=== PATIENT | male | born 1935 | race Caucasian/White ===

== ENCOUNTER 2017-10-04 09:54 | Emergency (ER) | payer MEDICARE, BC ==
[2017-10-04] MEDS: diphenhydrAMINE INJ 50MG/ML VIAL (J1200) IM (11:23)
== END 2017-10-04 12:13 | disposition home or self-care (01) ==
LOC: M ED 09:54
DX: L50.9 Urticaria, unspecified (principal); I10 Essential (primary) hypertension; I25.10 Atherosclerotic heart disease of native coronary artery without angina pectoris; Z95.1 Presence of aortocoronary bypass graft; Z95.5 Presence of coronary angioplasty implant and graft; Z88.0 Allergy status to penicillin; Z91.018 Allergy to other foods; Z91.040 Latex allergy status
CPT/HCPCS: J1200

== ENCOUNTER → 2019-05-08 | Outpatient (REF) | payer MEDICARE, BC ==
[~2019-05-08] MED LIST: ASPI325T10 PO; AZIT250T PO; BENA25TA10 PO; Budesonide NEB; CALCTAB68 PO; CENTTAB PO; COUM1TAB18 PO; FISH1000 PO; GLUC500T PO; GLUC750C4 PO; GREE250C PO; HYDR1CRE TOP; LEVA12INH INH; LOSA100T36 PO; MAPA500T17 PO; NAME5TAB13 PO; Nyquil PO; PERC7.5T12 PO; PULM1SUS AD; RED600TA PO; SIMV20TA2 PO; VITA500C24 PO; cranberry PO
[2019-05-08 13:29] LABS: HEMOGLOBIN 15.4 g/dl (13.5-17.5); MEAN CORPUSCULAR HEMOGLOBIN 30.3 pg (27.0-33.0); MEAN CORPUSCULAR HGB CONC 33.5 g/dl (32.0-36.5); MEAN CORPUSCULAR VOLUME 90.6 fl (80.0-96.0); PLATELET COUNT, AUTOMATED 212 10^3/uL (150-450); RED BLOOD COUNT 5.08 10^6/uL (4.30-6.10); WHITE BLOOD COUNT 8.4 10^3/uL (4.0-10.0)
[2019-05-08 13:47] LABS: HEMOGLOBIN A1c 6.1 %
[2019-05-08 14:06] LABS: ALBUMIN 4.2 GM/DL (3.2-5.2); ALT/SGPT 22 U/L (12-78); BILIRUBIN,TOTAL 0.7 MG/DL (0.2-1.0); BLOOD UREA NITROGEN 16 MG/DL (7-18); CALCIUM LEVEL 9.3 MG/DL (8.8-10.2); CARBON DIOXIDE LEVEL 26 MEQ/L (21-32); CHLORIDE LEVEL 110 MEQ/L (98-107); CREATININE FOR GFR 1.03 MG/DL (0.70-1.30); GLOMERULAR FILTRATION RATE > 60.0 (>35); GLUCOSE, FASTING 110 MG/DL (70-100); POTASSIUM SERUM 4.5 MEQ/L (3.5-5.1); SODIUM LEVEL 143 MEQ/L (136-145); TOTAL PROTEIN 7.4 GM/DL (6.4-8.2)
[2019-05-09 11:47] LABS: MALB URINE SIEMENS 30.4 MG/L; MAU/CREAT RATIO 18.2 MCG/MG (0.0-30.0)
== END ==
LOC: SKLAB8 07:00
PROVIDERS: ATTEND Internal Medicine
DX: Z79.899 Other long term (current) drug therapy (principal)

== ENCOUNTER → 2019-05-21 | Outpatient (REF) | payer MEDICARE, BC ==
[2019-05-22 15:59] LABS: HEPATITIS B SURFACE ANTIGEN NEGATIVE (NEGATIVE); HIV SCREEN CENTAUR SOURCE NEGATIVE (NEGATIVE)
[2019-05-23 09:17] LABS: HEP C VIRUS AB INDEX SOURCE PT 0.1 INDEX (0.0-0.8)
== END ==
LOC: SKLAB8 07:00
PROVIDERS: ATTEND Internal Medicine
DX: Z79.899 Other long term (current) drug therapy (principal)

== ENCOUNTER 2019-06-18 22:01 | Emergency (ER) | payer MEDICARE, BC ==
[~2019-06-18] VITALS: Ht 175.3 cm; Wt 85.0 kg
[2019-06-18] MEDS ORDERED: NS 1,000 ML IV SCH (22:12)
[2019-06-18] MEDS ORDERED: LIDOCAINE 2% 5ML JELLY UROJET TOP ONE (22:15)
--- NOTE | 2019-06-18 22:59 | REPVR ---
PROCEDURE INFORMATION: Exam: CT Head Without Contrast Exam date and time: 06/18/2019 10:39 PM Age: 84 years old Clinical indication: Altered mental status/memory loss TECHNIQUE: Imaging protocol: Computed tomography of the head without contrast. Radiation optimization: All CT scans at this facility use at least one of these dose optimization techniques: automated exposure control; mA and/or kV adjustment per patient size (includes targeted exams where dose is matched to clinical indication); or iterative reconstruction. COMPARISON: No relevant prior studies available. FINDINGS: Brain: The payne-white differentiation is maintained. No hemorrhage. No edema. There are moderate periventricular and subcortical lucencies consistent with chronic microvascular ischemic changes. Ventricles: Normal. No ventriculomegaly. Bones/joints: Unremarkable. No acute fracture. Sinuses: Complete opacification of the left maxillary sinus. Mastoid air cells: Visualized mastoid air cells are well aerated. Soft tissues: Unremarkable. Vasculature: Vascular calcifications. IMPRESSION: No acute intracranial abnormality. Chronic microvascular ischemic changes. Complete opacification of the left maxillary and ethmoid sinuses representing acute/chronic sinusitis. Electronically signed by: Moshe Nguyen On 06/18/2019 22:58:43 PM
--- NOTE | 2019-06-18 23:04 | REPVR ---
PROCEDURE INFORMATION: Exam: CT Cervical Spine Without Contrast Exam date and time: 06/18/2019 10:39 PM Age: 84 years old Clinical indication: Neck pain; Additional info: Altered mental status TECHNIQUE: Imaging protocol: Computed tomography images of the cervical spine without contrast. Radiation optimization: All CT scans at this facility use at least one of these dose optimization techniques: automated exposure control; mA and/or kV adjustment per patient size (includes targeted exams where dose is matched to clinical indication); or iterative reconstruction. COMPARISON: No relevant prior studies available. FINDINGS: Vertebrae: Grade 1 anterolisthesis of C2 over C3, grade 1 retrolisthesis of C3 over C4. Grade 1 anterolisthesis of C7 over T1. Other bones/joints: Diffuse demineralization of the bones. Soft tissues: Unremarkable. Lungs: Lung apices are normal. Other findings: There is multilevel uncovertebral and facet hypertrophy with neural foramina narrowing. IMPRESSION: No acute fracture. Multilevel spondylolisthesis, likely degenerative. Multilevel uncovertebral and facet hypertrophy with neural foraminal narrowing. Electronically signed by: Moshe Nguyen On 06/18/2019 23:03:55 PM
[2019-06-18 23:19] LABS: BASO # 0.1 10^3/uL (0.0-0.2); BASO % 0.7 % (0.0-1.0); EOS # 0.4 10^3/uL (0.0-0.5); EOS % 4.5 % (0.0-3.0); HEMATOCRIT 39.1 % (42.0-52.0); LYMPH # 1.1 10^3/uL (1.5-5.0); LYMPH % 13.4 % (24.0-44.0); MEAN CORPUSCULAR HEMOGLOBIN 30.6 pg (27.0-33.0); MEAN CORPUSCULAR HGB CONC 33.2 g/dl (32.0-36.5); MONO # 0.6 10^3/uL (0.0-0.8); MONO % 7.2 % (0.0-5.0); NEUTROPHILS # 6.1 10^3/uL (1.5-8.5); NEUTROPHILS % 73.7 % (36.0-66.0); PLATELET COUNT, AUTOMATED 213 10^3/uL (150-450); RED BLOOD COUNT 4.25 10^6/uL (4.30-6.10); WHITE BLOOD COUNT 8.2 10^3/uL (4.0-10.0)
[2019-06-18 23:48] LABS: ACETAMINOPHEN LEVEL < 2.0 UG/ML (10.0-30.0); ALBUMIN 3.3 GM/DL (3.2-5.2); ALT/SGPT 34 U/L (12-78); BILIRUBIN,DIRECT 0.2 MG/DL (0.0-0.2); BILIRUBIN,TOTAL 0.4 MG/DL (0.2-1.0); BLOOD UREA NITROGEN 18 MG/DL (7-18); CALCIUM LEVEL 8.7 MG/DL (8.8-10.2); CARBON DIOXIDE LEVEL 27 MEQ/L (21-32); CHLORIDE LEVEL 106 MEQ/L (98-107); CK-MB VALUE MASS 8.4 NG/ML (<3.6); CPK CREATINE PHOSPHOKINASE 199 U/L (39-308); CREATININE FOR GFR 0.93 MG/DL (0.70-1.30); GLOMERULAR FILTRATION RATE > 60.0 (>35); GLUCOSE, FASTING 91 MG/DL (70-100); MB/CK RELATIVE INDEX 4.22 (< OR =4); POTASSIUM SERUM 4.1 MEQ/L (3.5-5.1); SALICYLATE LEVEL < 1.7 MG/DL (5.0-30.0); SODIUM LEVEL 140 MEQ/L (136-145); TOTAL PROTEIN 6.6 GM/DL (6.4-8.2); TROPONIN I 0.03 NG/ML (< 0.10)
[2019-06-19] MEDS ORDERED: ASPI-161 PO (00:01)
[2019-06-19] MEDS ORDERED: MOM30SS PO (00:01)
[2019-06-19] MEDS ORDERED: DULC10SU2 PR (00:01)
[2019-06-19] MEDS ORDERED: VITMTA PO (00:01)
[2019-06-19] MEDS ORDERED: LOSA50TA88 PO (00:01)
[2019-06-19] MEDS ORDERED: TRAZ-189 PO (00:01)
[2019-06-19] MEDS ORDERED: QUET5TAB PO (00:01)
[2019-06-19] MEDS ORDERED: HYDR5CR TOP (00:01)
[2019-06-19] MEDS ORDERED: ACET-907 PO (00:01)
[2019-06-19] MEDS ORDERED: SYNT50TA PO (00:01)
[2019-06-19] MEDS ORDERED: MELA10TA2 PO (00:01)
[2019-06-19] MEDS ORDERED: ATOR40TA75 PO (00:01)
[2019-06-19] MEDS ORDERED: FLEEENE12 PR (00:01)
[2019-06-19 00:03] VITALS: BP 164/76
--- NOTE | 2019-06-19 05:47 | ECGEPIP ---
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
--- NOTE | 2019-06-19 08:18 | REP ---
Portable chest x-ray: Two views. History: Altered mental status. Comparison chest x-ray: January 05, 2016. Findings: The patient is status post prior median sternotomy. Moderate cardiac enlargement is observed. The thoracic aorta is somewhat tortuous. There is no evidence of infiltrate, pulmonary edema, or pleural effusion. No acute bony abnormality. Impression: Moderate cardiomegaly post median sternotomy. Otherwise no acute disease. Electronically Signed by Fernie Barroso MD 06/19/2019 08:08 A
== END 2019-06-19 00:14 | disposition home or self-care (01) ==
LOC: M ED 22:01
DX: S09.90XA Unspecified injury of head, initial encounter (principal); F03.90 Unspecified dementia, unspecified severity, without behavioral disturbance, psychotic disturbance, mood disturbance, and anxiety; W19.XXXA Unspecified fall, initial encounter; Y92.129 Unspecified place in nursing home as the place of occurrence of the external cause; Y93.9 Activity, unspecified; Y99.9 Unspecified external cause status; I44.0 Atrioventricular block, first degree; I45.89 Other specified conduction disorders; I51.9 Heart disease, unspecified; E11.9 Type 2 diabetes mellitus without complications; I10 Essential (primary) hypertension; E78.5 Hyperlipidemia, unspecified; J44.9 Chronic obstructive pulmonary disease, unspecified; Z95.5 Presence of coronary angioplasty implant and graft; M43.12 Spondylolisthesis, cervical region; M43.13 Spondylolisthesis, cervicothoracic region; M99.51 Intervertebral disc stenosis of neural canal of cervical region; I51.7 Cardiomegaly; J01.00 Acute maxillary sinusitis, unspecified; J01.20 Acute ethmoidal sinusitis, unspecified; E73.9 Lactose intolerance, unspecified; Z79.82 Long term (current) use of aspirin; Z79.899 Other long term (current) drug therapy; Z88.0 Allergy status to penicillin; Z91.040 Latex allergy status; Z91.018 Allergy to other foods
CPT/HCPCS: 51701; 70450; 71045; 72125; 80048; 80076; 81001; 82550; 82553; 84484; 85025; 93005; 93041; 94760; 96360; 96361; 99285; G0480

== ENCOUNTER → 2019-06-26 | Outpatient (REF) | payer MEDICARE, BC ==
[~2019-06-26] MED LIST changes: +ACET-907 PO; +ASPI-161 PO; +ATOR40TA75 PO; +DULC10SU2 PR; +FLEEENE12 PR; +HYDR5CR TOP; +LOSA50TA88 PO; +MELA10TA2 PO; +MOM30SS PO; +QUET5TAB PO; +SYNT50TA PO; +TRAZ-189 PO; +VITMTA PO
== END ==
LOC: SKLAB8 07:00
PROVIDERS: ATTEND Internal Medicine
DX: I73.9 Peripheral vascular disease, unspecified (principal); Z79.01 Long term (current) use of anticoagulants; Z86.718 Personal history of other venous thrombosis and embolism; E03.9 Hypothyroidism, unspecified

== ENCOUNTER → 2019-08-12 | Outpatient (REF) | payer MEDICARE, BC ==
[2019-08-12 16:02] LABS: HEMATOCRIT 38.8 % (42.0-52.0); HEMOGLOBIN 13.2 g/dl (13.5-17.5); MEAN CORPUSCULAR HEMOGLOBIN 30.8 pg (27.0-33.0); MEAN CORPUSCULAR VOLUME 90.4 fl (80.0-96.0); PLATELET COUNT, AUTOMATED 178 10^3/uL (150-450); RED BLOOD COUNT 4.29 10^6/uL (4.30-6.10); WHITE BLOOD COUNT 7.2 10^3/uL (4.0-10.0)
[2019-08-12 16:40] LABS: BLOOD UREA NITROGEN 15 MG/DL (7-18); CALCIUM LEVEL 8.4 MG/DL (8.8-10.2); CARBON DIOXIDE LEVEL 25 MEQ/L (21-32); CHLORIDE LEVEL 107 MEQ/L (98-107); CREATININE FOR GFR 0.88 MG/DL (0.70-1.30); GLOMERULAR FILTRATION RATE > 60.0 (>35); GLUCOSE, FASTING 96 MG/DL (70-100); POTASSIUM SERUM 3.7 MEQ/L (3.5-5.1); SODIUM LEVEL 138 MEQ/L (136-145)
--- NOTE | 2019-08-13 07:53 | ECGEPIP ---
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
[2019-08-13 08:30] LABS: CK-MB VALUE MASS 8.8 NG/ML (<3.6); CPK CREATINE PHOSPHOKINASE 267 U/L (39-308); MAGNESIUM LEVEL 2.1 MG/DL (1.8-2.4); TROPONIN I < 0.02 NG/ML (< 0.10)
== END ==
LOC: SKLAB8 15:00
PROVIDERS: ATTEND Internal Medicine

== ENCOUNTER → 2019-08-12 | Outpatient (CLI) | payer MEDICARE, BC ==
--- NOTE | 2019-08-12 16:50 | REPVR ---
PROCEDURE INFORMATION: Exam: CT Head Without Contrast Exam date and time: 08/12/2019 4:19 PM Age: 84 years old Clinical indication: Injury or trauma; Fall; Initial encounter; Blunt trauma (contusions or hematomas); Additional info: Left orbital bruise TECHNIQUE: Imaging protocol: Computed tomography of the head without contrast. Radiation optimization: All CT scans at this facility use at least one of these dose optimization techniques: automated exposure control; mA and/or kV adjustment per patient size (includes targeted exams where dose is matched to clinical indication); or iterative reconstruction. COMPARISON: No relevant prior studies available. FINDINGS: Brain: There is no acute intracranial hemorrhage, cerebral edema, or midline shift. Chronic microvascular ischemic changes are seen in the periventricular white matter. Age-related cerebral and cerebellar volume loss is present. Ventricles: Mild ex vacuo dilation of the lateral and third ventricles is noted. Bones/joints: No acute fracture. Sinuses: There is complete opacification of the left frontal, ethmoid, and maxillary sinuses. Right sphenoid sinusitis is also noted. Mastoid air cells: The mastoid air cells are clear. Orbits: The included orbital structures are unremarkable. Vasculature: Atherosclerotic calcifications are seen involving the cavernous carotid arteries. Soft tissues: Unremarkable. IMPRESSION: 1. No acute intracranial abnormality. 2. Atrophy and chronic deep white matter ischemic changes. Electronically signed by: Kishore Monroe On 08/12/2019 16:50:25 PM
== END ==
LOC: M RAD 15:58
PROVIDERS: ATTEND Nurse Practitioner Family
DX: R55 Syncope and collapse (principal)

== ENCOUNTER → 2019-08-13 | Outpatient (REF) | payer MEDICARE, BC ==
--- NOTE | 2019-08-15 21:39 | HOLTMON ---
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 No atrial fibrillation detected. Rare PACs (66 single PACs, 1 atrial triplet. No sustained PSVT. Very frequent PVCs [8832] including 226 ventricular couplets, frequent ventricular trigeminy and bigeminy, and 14 ventricular runs of 3 beats or longer. Slowest to run 55 bpm. Longest ventricle run 10 beats. 12 episodes of nonsustained ventricular tachycardia. No RR intervals longer than 2.0 seconds. No symptoms or patient event markers recorded. Electronically Signed on 08-15-2019 21:39:13 EDT by Kimani Hanks
== END ==
LOC: SKLAB8 08-12 15:10
PROVIDERS: ATTEND Internal Medicine
DX: Z79.899 Other long term (current) drug therapy (principal)

== ENCOUNTER → 2019-12-25 | Outpatient (REF) | payer MEDICARE, BC ==
[2019-12-25 10:33] LABS: HEMATOCRIT 42.9 % (42.0-52.0); HEMOGLOBIN 13.9 g/dl (13.5-17.5); MEAN CORPUSCULAR HGB CONC 32.4 g/dl (32.0-36.5); MEAN CORPUSCULAR VOLUME 92.5 fl (80.0-96.0); PLATELET COUNT, AUTOMATED 188 10^3/uL (150-450); RED BLOOD COUNT 4.64 10^6/uL (4.30-6.10); WHITE BLOOD COUNT 7.5 10^3/uL (4.0-10.0)
[2019-12-25 11:13] LABS: HEMOGLOBIN A1c 5.8 %
[2019-12-25 11:24] LABS: ALBUMIN 3.5 GM/DL (3.2-5.2); ALT/SGPT 25 U/L (12-78); BILIRUBIN,TOTAL 0.6 MG/DL (0.2-1.0); BLOOD UREA NITROGEN 16 MG/DL (7-18); CALCIUM LEVEL 8.6 MG/DL (8.8-10.2); CARBON DIOXIDE LEVEL 26 MEQ/L (21-32); CHLORIDE LEVEL 112 MEQ/L (98-107); CREATININE FOR GFR 0.76 MG/DL (0.70-1.30); GLOMERULAR FILTRATION RATE > 60.0 (>35); GLUCOSE, FASTING 104 MG/DL (70-100); POTASSIUM SERUM 4.6 MEQ/L (3.5-5.1); SODIUM LEVEL 144 MEQ/L (136-145)
== END ==
LOC: SKLAB8 07:00
PROVIDERS: ATTEND Internal Medicine
DX: E03.9 Hypothyroidism, unspecified (principal); E11.9 Type 2 diabetes mellitus without complications; I50.89 Other heart failure

== ENCOUNTER → 2020-01-09 | Outpatient (REF) | payer MEDICARE, BC | LOC: SKLAB8 10:00 | PROVIDERS: ATTEND Internal Medicine | DX: Z13.818 Encounter for screening for other digestive system disorders (principal); Z11.4 Encounter for screening for human immunodeficiency virus [HIV] ==

== ENCOUNTER → 2020-01-28 | Outpatient (REF) | payer MEDICARE, BC ==
[~2020-01-28] MED LIST changes: +QUET50TA3 PO; -QUET5TAB PO
== END ==
LOC: SKLAB8 01-27 13:35 → SKLAB7 08:00 → SKLAB8 02-09 08:17 → EDSTATUS 03-05 12:42
PROVIDERS: ATTEND Internal Medicine
DX: Z20.828 Contact with and (suspected) exposure to other viral communicable diseases (principal)

== ENCOUNTER → 2020-02-04 | Outpatient (REF) | payer MEDICARE, BC ==
[2020-02-04 11:29] LABS: INFLUENZA A AMPLIFICATION NEGATIVE (NEGATIVE); INFLUENZA B AMPLIFICATION NEGATIVE (NEGATIVE)
== END ==
LOC: SKLAB8 08:00
PROVIDERS: ATTEND Internal Medicine
DX: Z20.828 Contact with and (suspected) exposure to other viral communicable diseases (principal)
CPT/HCPCS: 87502; U0003

== ENCOUNTER → 2020-02-11 | Outpatient (REF) | payer MEDICARE, BC | LOC: SKLAB8 08:00 | PROVIDERS: ATTEND Internal Medicine | DX: Z20.828 Contact with and (suspected) exposure to other viral communicable diseases (principal) ==

== ENCOUNTER → 2020-02-16 | Outpatient (REF) | payer MEDICARE, BC ==
[~2020-02-16] MED LIST changes: -QUET50TA3 PO; +QUET5TAB PO
[2020-02-16 11:21] LABS: HEMOGLOBIN 14.6 g/dl (13.5-17.5); MEAN CORPUSCULAR HEMOGLOBIN 29.7 pg (27.0-33.0); MEAN CORPUSCULAR HGB CONC 32.4 g/dl (32.0-36.5); MEAN CORPUSCULAR VOLUME 91.5 fl (80.0-96.0); PLATELET COUNT, AUTOMATED 173 10^3/uL (150-450); RED BLOOD COUNT 4.92 10^6/uL (4.30-6.10); WHITE BLOOD COUNT 6.2 10^3/uL (4.0-10.0)
[2020-02-16 11:56] LABS: BLOOD UREA NITROGEN 20 MG/DL (7-18); CALCIUM LEVEL 8.6 MG/DL (8.8-10.2); CARBON DIOXIDE LEVEL 28 MEQ/L (21-32); CHLORIDE LEVEL 110 MEQ/L (98-107); CREATININE FOR GFR 0.94 MG/DL (0.70-1.30); GLOMERULAR FILTRATION RATE > 60.0 (>35); GLUCOSE, FASTING 100 MG/DL (70-100); POTASSIUM SERUM 3.9 MEQ/L (3.5-5.1); SODIUM LEVEL 143 MEQ/L (136-145)
== END ==
LOC: SKLAB8 09:00
PROVIDERS: ATTEND Internal Medicine
DX: R29.6 Repeated falls (principal)

== ENCOUNTER → 2020-02-18 | Outpatient (REF) | payer MEDICARE, BC | LOC: SKLAB8 11:00 | PROVIDERS: ATTEND Internal Medicine | DX: Z20.828 Contact with and (suspected) exposure to other viral communicable diseases (principal) ==

== ENCOUNTER → 2020-02-25 | Outpatient (REF) | payer MEDICARE, BC | LOC: SKLAB8 09:51 | PROVIDERS: ATTEND Internal Medicine | DX: Z20.828 Contact with and (suspected) exposure to other viral communicable diseases (principal) ==

== ENCOUNTER → 2020-03-03 | Outpatient (REF) | payer MEDICARE, BC | LOC: SKLAB8 10:00 | PROVIDERS: ATTEND Internal Medicine | DX: Z20.828 Contact with and (suspected) exposure to other viral communicable diseases (principal) ==

== ENCOUNTER → 2020-03-10 | Outpatient (REF) | payer MEDICARE, BC | LOC: SKLAB8 10:00 | PROVIDERS: ATTEND Internal Medicine | DX: Z20.828 Contact with and (suspected) exposure to other viral communicable diseases (principal) ==

== ENCOUNTER 2020-03-12 20:24 | Emergency (ER) | payer MEDICARE, BC ==
[~2020-03-12] VITALS: Ht 165.1 cm; Wt 82.8 kg
[2020-03-12 20:25] VITALS: BP 137/60
[2020-03-12] MEDS ORDERED: DERMABOND TOPICAL SKIN ADHESIVE TOP ONE (21:30)
--- NOTE | 2020-03-12 21:47 | REPVR ---
PROCEDURE INFORMATION: Exam: CT Head Without Contrast Exam date and time: 03/12/2020 9:40 PM Age: 84 years old Clinical indication: Injury or trauma; Fall; Blunt trauma (contusions or hematomas); Additional info: Head injury TECHNIQUE: Imaging protocol: Computed tomography of the head without contrast. Radiation optimization: All CT scans at this facility use at least one of these dose optimization techniques: automated exposure control; mA and/or kV adjustment per patient size (includes targeted exams where dose is matched to clinical indication); or iterative reconstruction. COMPARISON: CT Head without contrast 08/12/2019 4:28 PM FINDINGS: Brain: Nonspecific hypodensities of the periventricular and deep subcortical white matter, most likely secondary to chronic small vessel ischemic change. No intracranial hemorrhage or extra-axial fluid collection. No evidence of mass effect or midline shift. Bashir-white matter differentiation is normal. Cerebral ventricles: Prominence of the ventricles and sulci, most likely attributed to parenchymal volume loss. Bones/joints: No acute osseus lesion or fracture. Paranasal sinuses: Chronic complete opacification of the left maxillary, ethmoid, and frontal sinuses, compatible with chronic sinusitis. Mastoid air cells: Unremarkable. Soft tissues: Unremarkable. IMPRESSION: 1. No acute intracranial pathology. 2. Chronic left paranasal sinusitis. 3. Other chronic findings, as above. Electronically signed by: Kamari Lyons On 03/12/2020 21:47:26 PM
--- NOTE | 2020-03-13 08:18 | ED PDOC ---
Post-Departure Follow-Up radiology report faxed to Jesenia José MD Mar 13, 2020 08:18
== END 2020-03-12 22:43 | disposition home or self-care (01) ==
LOC: M ED 20:24
DX: S01.311A Laceration without foreign body of right ear, initial encounter (principal); X58.XXXA Exposure to other specified factors, initial encounter; Y92.129 Unspecified place in nursing home as the place of occurrence of the external cause; Y93.9 Activity, unspecified; Y99.9 Unspecified external cause status; F03.90 Unspecified dementia, unspecified severity, without behavioral disturbance, psychotic disturbance, mood disturbance, and anxiety; E73.9 Lactose intolerance, unspecified; Z79.82 Long term (current) use of aspirin; Z79.899 Other long term (current) drug therapy; Z88.0 Allergy status to penicillin; Z91.040 Latex allergy status; Z91.018 Allergy to other foods

== ENCOUNTER → 2020-03-17 | Outpatient (REF) | payer MEDICARE, BC | LOC: SKLAB8 10:00 | PROVIDERS: ATTEND Internal Medicine | DX: Z11.52 Encounter for screening for COVID-19 (principal) ==

== ENCOUNTER → 2020-03-24 | Outpatient (REF) | payer MEDICARE, BC | LOC: SKLAB8 10:00 | PROVIDERS: ATTEND Internal Medicine | DX: Z20.822 Contact with and (suspected) exposure to COVID-19 (principal) ==

== ENCOUNTER → 2020-03-31 | Outpatient (REF) | payer MEDICARE, BC ==
[~2020-03-31] MED LIST changes: +QUET50TA3 PO; -QUET5TAB PO
== END ==
LOC: SKLAB8 09:00
PROVIDERS: ATTEND Internal Medicine
DX: Z20.828 Contact with and (suspected) exposure to other viral communicable diseases (principal)

== ENCOUNTER → 2020-04-07 | Outpatient (REF) | payer MEDICARE, BC | LOC: SKLAB8 10:00 | PROVIDERS: ATTEND Internal Medicine | DX: Z20.822 Contact with and (suspected) exposure to COVID-19 (principal) ==

== ENCOUNTER → 2020-04-14 | Outpatient (REF) | payer MEDICARE, BC ==
[~2020-04-14] MED LIST changes: -QUET50TA3 PO; +QUET5TAB PO
== END ==
LOC: SKLAB8 10:30
PROVIDERS: ATTEND Internal Medicine
DX: Z20.822 Contact with and (suspected) exposure to COVID-19 (principal)

== ENCOUNTER → 2020-04-21 | Outpatient (REF) | payer MEDICARE, BC ==
[~2020-04-21] MED LIST changes: +QUET50TA3 PO; -QUET5TAB PO
== END ==
LOC: SKLAB8 09:00
PROVIDERS: ATTEND Internal Medicine
DX: Z20.822 Contact with and (suspected) exposure to COVID-19 (principal)

== ENCOUNTER → 2020-04-28 | Outpatient (REF) | payer MEDICARE, BC | LOC: SKLAB8 09:00 | PROVIDERS: ATTEND Internal Medicine | DX: Z20.822 Contact with and (suspected) exposure to COVID-19 (principal) ==

== ENCOUNTER → 2020-05-05 | Outpatient (REF) | payer MEDICARE, BC | LOC: SKLAB8 10:00 | PROVIDERS: ATTEND Internal Medicine | DX: Z20.822 Contact with and (suspected) exposure to COVID-19 (principal) ==

== ENCOUNTER → 2020-05-19 | Outpatient (REF) | payer MEDICARE, BC | LOC: SKLAB8 09:00 | PROVIDERS: ATTEND Internal Medicine | DX: Z20.822 Contact with and (suspected) exposure to COVID-19 (principal) ==

== ENCOUNTER → 2020-05-26 | Outpatient (REF) | payer MEDICARE, BC | LOC: SKLAB8 10:00 | PROVIDERS: ATTEND Internal Medicine | DX: Z20.822 Contact with and (suspected) exposure to COVID-19 (principal) ==

== ENCOUNTER → 2020-06-11 | Outpatient (REF) | payer MEDICARE, BC | LOC: SKLAB8 06-12 10:00 | PROVIDERS: ATTEND Internal Medicine | DX: Z20.828 Contact with and (suspected) exposure to other viral communicable diseases (principal) ==

== ENCOUNTER → 2020-06-24 | Outpatient (REF) | payer MEDICARE, BC ==
[2020-06-24 10:47] LABS: HEMOGLOBIN 13.2 g/dl (13.5-17.5); MEAN CORPUSCULAR HEMOGLOBIN 30.3 pg (27.0-33.0); MEAN CORPUSCULAR HGB CONC 32.2 g/dl (32.0-36.5); MEAN CORPUSCULAR VOLUME 94.3 fl (80.0-96.0); PLATELET COUNT, AUTOMATED 209 10^3/uL (150-450); RED BLOOD COUNT 4.35 10^6/uL (4.30-6.10); WHITE BLOOD COUNT 7.9 10^3/uL (4.0-10.0)
[2020-06-24 12:55] LABS: ALBUMIN 3.4 GM/DL (3.2-5.2); ALT/SGPT 30 U/L (12-78); BILIRUBIN,TOTAL 0.5 MG/DL (0.2-1.0); BLOOD UREA NITROGEN 19 MG/DL (7-18); CALCIUM LEVEL 8.4 MG/DL (8.8-10.2); CARBON DIOXIDE LEVEL 24 MEQ/L (21-32); CHLORIDE LEVEL 113 MEQ/L (98-107); CREATININE FOR GFR 0.85 MG/DL (0.70-1.30); GLOMERULAR FILTRATION RATE > 60.0 (>35); GLUCOSE, FASTING 86 MG/DL (70-100); POTASSIUM SERUM 4.5 MEQ/L (3.5-5.1); SODIUM LEVEL 144 MEQ/L (136-145); TOTAL PROTEIN 6.5 GM/DL (6.4-8.2)
[2020-06-24 18:53] LABS: HEMOGLOBIN A1c 5.9 %
== END ==
LOC: SKLAB8 08:00
PROVIDERS: ATTEND Internal Medicine
DX: E03.9 Hypothyroidism, unspecified (principal); E11.9 Type 2 diabetes mellitus without complications; I50.9 Heart failure, unspecified

== ENCOUNTER → 2020-07-23 | Outpatient (REF) | payer MEDICARE, BC ==
[2020-07-23 15:15] LABS: HEMATOCRIT 40.8 % (42.0-52.0); MEAN CORPUSCULAR HEMOGLOBIN 29.6 pg (27.0-33.0); MEAN CORPUSCULAR HGB CONC 31.9 g/dl (32.0-36.5); MEAN CORPUSCULAR VOLUME 92.9 fl (80.0-96.0); PLATELET COUNT, AUTOMATED 200 10^3/uL (150-450); RED BLOOD COUNT 4.39 10^6/uL (4.30-6.10)
[2020-07-23 15:51] LABS: BLOOD UREA NITROGEN 14 MG/DL (7-18); CALCIUM LEVEL 8.6 MG/DL (8.8-10.2); CARBON DIOXIDE LEVEL 23 MEQ/L (21-32); CHLORIDE LEVEL 111 MEQ/L (98-107); CREATININE FOR GFR 0.74 MG/DL (0.70-1.30); GLOMERULAR FILTRATION RATE > 60.0 (>35); GLUCOSE, FASTING 110 MG/DL (70-100); POTASSIUM SERUM 3.9 MEQ/L (3.5-5.1); SODIUM LEVEL 143 MEQ/L (136-145)
== END ==
LOC: SKLAB8 07:00
PROVIDERS: ATTEND Internal Medicine
DX: N18.30 Chronic kidney disease, stage 3 unspecified (principal); Z79.899 Other long term (current) drug therapy

== ENCOUNTER → 2020-08-31 | Outpatient (REF) | payer MEDICARE, BC ==
[2020-08-31 11:11] LABS: HEMATOCRIT 41.2 % (42.0-52.0); HEMOGLOBIN 13.2 g/dl (13.5-17.5); MEAN CORPUSCULAR HEMOGLOBIN 29.3 pg (27.0-33.0); MEAN CORPUSCULAR VOLUME 91.6 fl (80.0-96.0); PLATELET COUNT, AUTOMATED 204 10^3/uL (150-450); WHITE BLOOD COUNT 6.5 10^3/uL (4.0-10.0)
[2020-08-31 11:48] LABS: BLOOD UREA NITROGEN 11 MG/DL (7-18); CALCIUM LEVEL 8.6 MG/DL (8.8-10.2); CARBON DIOXIDE LEVEL 27 MEQ/L (21-32); CHLORIDE LEVEL 108 MEQ/L (98-107); CREATININE FOR GFR 0.79 MG/DL (0.70-1.30); GLOMERULAR FILTRATION RATE > 60.0 (>35); GLUCOSE, FASTING 116 MG/DL (70-100); NT-PRO BNP 4029 PG/ML (<450); SODIUM LEVEL 141 MEQ/L (136-145)
--- NOTE | 2020-08-31 23:37 | ECGEPIP ---
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 Poor R wave progression, possible old anteroseptal m myocardial infarct. Nonspecific intraventricular block Electronically Signed on 08-31-2020 23:37:17 EDT by Kimani Hanks
== END ==
LOC: SKLAB8 07:00
PROVIDERS: ATTEND Internal Medicine
DX: I45.4 Nonspecific intraventricular block (principal)

== ENCOUNTER → 2020-09-03 | Outpatient (REF) | payer MEDICARE, BC ==
[2020-09-03 11:11] LABS: BLOOD UREA NITROGEN 14 MG/DL (7-18); CALCIUM LEVEL 8.5 MG/DL (8.8-10.2); CARBON DIOXIDE LEVEL 29 MEQ/L (21-32); CHLORIDE LEVEL 105 MEQ/L (98-107); GLOMERULAR FILTRATION RATE > 60.0 (>35); GLUCOSE, FASTING 165 MG/DL (70-100); POTASSIUM SERUM 3.5 MEQ/L (3.5-5.1); SODIUM LEVEL 140 MEQ/L (136-145)
== END ==
LOC: SKLAB8 07:00
PROVIDERS: ATTEND Internal Medicine
DX: R60.9 Edema, unspecified (principal)

== ENCOUNTER → 2020-09-07 | Outpatient (REF) | payer MEDICARE, BC ==
[2020-09-07 07:52] LABS: BLOOD UREA NITROGEN 15 MG/DL (7-18); CALCIUM LEVEL 8.9 MG/DL (8.8-10.2); CARBON DIOXIDE LEVEL 26 MEQ/L (21-32); CHLORIDE LEVEL 107 MEQ/L (98-107); CREATININE FOR GFR 0.92 MG/DL (0.70-1.30); GLOMERULAR FILTRATION RATE > 60.0 (>35); GLUCOSE, FASTING 103 MG/DL (70-100); NT-PRO BNP 4839 PG/ML (<450); POTASSIUM SERUM 4.1 MEQ/L (3.5-5.1); SODIUM LEVEL 141 MEQ/L (136-145)
== END ==
LOC: SKLAB8 07:00
PROVIDERS: ATTEND Internal Medicine
DX: R60.9 Edema, unspecified (principal)

== ENCOUNTER → 2020-09-17 | Outpatient (REF) | payer MEDICARE, BC ==
[~2020-09-17] MED LIST changes: +ASPI1CHW3 PO; +CEFD300CAP PO; +ENSU1LIQ50 PO; +LOSA50TA28 PO; -LOSA50TA88 PO; +MELA10CA2 PO; +MOM30SS2 PO; +PROAAER10 INH; +QUET1TAB17 PO; -QUET50TA3 PO; +QUET50TA4 PO; +SENN1TAB41 PO; +SORB70SO36 PO; +SYNT75TA PO; +TRAZ-252 PO
== END ==
LOC: SKLAB8 14:11
PROVIDERS: ATTEND Internal Medicine
DX: S62.301A Unspecified fracture of second metacarpal bone, left hand, initial encounter for closed fracture (principal)

== ENCOUNTER → 2020-09-23 | Outpatient (REF) | payer MEDICARE, BC ==
[2020-09-23 10:16] LABS: BLOOD UREA NITROGEN 15 MG/DL (7-18); CALCIUM LEVEL 8.6 MG/DL (8.8-10.2); CARBON DIOXIDE LEVEL 24 MEQ/L (21-32); CHLORIDE LEVEL 107 MEQ/L (98-107); CREATININE FOR GFR 1.05 MG/DL (0.70-1.30); GLOMERULAR FILTRATION RATE > 60.0 (>35); GLUCOSE, FASTING 163 MG/DL (70-100); NT-PRO BNP 6644 PG/ML (<450); POTASSIUM SERUM 4.1 MEQ/L (3.5-5.1); SODIUM LEVEL 139 MEQ/L (136-145)
== END ==
LOC: SKLAB8 07:00
PROVIDERS: ATTEND Internal Medicine
DX: I50.9 Heart failure, unspecified (principal)

== ENCOUNTER → 2020-09-28 | Outpatient (CLI) | payer MEDICARE, BC ==
[~2020-09-28] MED LIST changes: -ASPI1CHW3 PO; -CEFD300CAP PO; -ENSU1LIQ50 PO; -LOSA50TA28 PO; +LOSA50TA88 PO; -MELA10CA2 PO; -MOM30SS2 PO; -PROAAER10 INH; -QUET1TAB17 PO; +QUET50TA3 PO; -QUET50TA4 PO; -SENN1TAB41 PO; -SORB70SO36 PO; -SYNT75TA PO; -TRAZ-252 PO
--- NOTE | 2020-09-28 13:14 | REP ---
INDICATION: UNSP FX OF 2ND METACARPAL BONE LT HAND. COMPARISON: Comparison left hand radiographs September 17, 2020.. TECHNIQUE: Five views of the left hand are provided. FINDINGS: Five views of the left hand again demonstrate diffuse osteopenia. 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 Chondrocalcinosis is noted at the wrist and there is vascular calcification. Arthritic changes are noted at scattered MCP and IP joints. There is soft tissue swelling involving the proximal phalanx of the index finger. Previous study showed cortical irregularity along the dorsal and ulnar aspect of the distal end of the 2nd metacarpal. This area is unchanged but no definite fracture is seen. This should be correlated with the area of tenderness palpation. There is a curvilinear density in the soft tissues adjacent to the 2nd MCP joint in the palm are soft tissues which are also swollen consistent with a focal linear foreign body. This measures 9 mm in length and less than a mm in thickness. IMPRESSION: 9 mm curvilinear wire like foreign body in the palm are soft tissues adjacent to the 2nd MCP joint with moderate soft tissue swelling in this region. Equivocal cortical disruption distal end of the 2nd metacarpal unchanged. Suspect opaque soft tissue foreign body. <Electronically signed by Irwin Barroso > 09/28/20 [id number]
== END ==
LOC: M SOG 10:54
PROVIDERS: ATTEND Orthopaedic Surgery Sports Medicine
DX: S62.301A Unspecified fracture of second metacarpal bone, left hand, initial encounter for closed fracture (principal); X58.XXXA Exposure to other specified factors, initial encounter; Y92.9 Unspecified place or not applicable

== ENCOUNTER → 2020-10-05 | Outpatient (REF) | payer MEDICARE, BC ==
[2020-10-05 10:44] LABS: BLOOD UREA NITROGEN 19 MG/DL (7-18); CALCIUM LEVEL 8.3 MG/DL (8.8-10.2); CARBON DIOXIDE LEVEL 25 MEQ/L (21-32); CHLORIDE LEVEL 110 MEQ/L (98-107); CREATININE FOR GFR 0.91 MG/DL (0.70-1.30); GLOMERULAR FILTRATION RATE > 60.0 (>35); GLUCOSE, FASTING 180 MG/DL (70-100); NT-PRO BNP 4143 PG/ML (<450); POTASSIUM SERUM 3.7 MEQ/L (3.5-5.1); SODIUM LEVEL 143 MEQ/L (136-145)
== END ==
LOC: SKLAB8 08:08
PROVIDERS: ATTEND Internal Medicine
DX: I50.9 Heart failure, unspecified (principal)

== ENCOUNTER → 2020-12-30 | Outpatient (REF) | payer MEDICARE, BC ==
[~2020-12-30] MED LIST changes: -QUET50TA3 PO; +QUET50TA4 PO
== END ==
LOC: SKLAB8 10:00
PROVIDERS: ATTEND Internal Medicine
DX: Z20.822 Contact with and (suspected) exposure to COVID-19 (principal)

== ENCOUNTER → 2020-12-30 | Outpatient (REF) | payer MEDICARE, BC ==
[2020-12-30 12:02] LABS: HEMATOCRIT 43.3 % (42.0-52.0); HEMOGLOBIN 14.2 g/dl (13.5-17.5); MEAN CORPUSCULAR HEMOGLOBIN 29.8 pg (27.0-33.0); MEAN CORPUSCULAR HGB CONC 32.8 g/dl (32.0-36.5); MEAN CORPUSCULAR VOLUME 90.8 fl (80.0-96.0); PLATELET COUNT, AUTOMATED 236 10^3/uL (150-450); RED BLOOD COUNT 4.77 10^6/uL (4.30-6.10); WHITE BLOOD COUNT 7.2 10^3/uL (4.0-10.0)
[2020-12-30 12:25] LABS: HEMOGLOBIN A1c 6.1 %
[2020-12-30 12:46] LABS: ALBUMIN 3.3 GM/DL (3.2-5.2); ALT/SGPT 26 U/L (12-78); BILIRUBIN,TOTAL 0.8 MG/DL (0.2-1.0); BLOOD UREA NITROGEN 14 MG/DL (7-18); CALCIUM LEVEL 8.6 MG/DL (8.8-10.2); CARBON DIOXIDE LEVEL 28 MEQ/L (21-32); CHLORIDE LEVEL 106 MEQ/L (98-107); CREATININE FOR GFR 0.85 MG/DL (0.70-1.30); GLOMERULAR FILTRATION RATE > 60.0 (>35); GLUCOSE, FASTING 123 MG/DL (70-100); POTASSIUM SERUM 3.7 MEQ/L (3.5-5.1); SODIUM LEVEL 141 MEQ/L (136-145); TOTAL PROTEIN 7.1 GM/DL (6.4-8.2)
== END ==
LOC: SKLAB8 07:00
PROVIDERS: ATTEND Internal Medicine
DX: E03.9 Hypothyroidism, unspecified (principal); E11.9 Type 2 diabetes mellitus without complications; I50.9 Heart failure, unspecified

== ENCOUNTER → 2021-01-03 | Outpatient (REF) | payer MEDICARE, BC | LOC: SKLAB8 06:50 | PROVIDERS: ATTEND Internal Medicine | DX: Z20.822 Contact with and (suspected) exposure to COVID-19 (principal) ==

== ENCOUNTER → 2021-01-05 | Outpatient (CLI) | payer MEDICARE, BC ==
--- NOTE | 2021-01-05 16:40 | REP ---
INDICATION: PAIN, SWELLING, FALL. COMPARISON: None. TECHNIQUE: Four views of the right hand FINDINGS: The bones are demineralized. Degenerative changes seen throughout the hand. Chronic changes seen throughout the wrist. The examination was obtained with the digits flexed significantly limiting the exam. The lateral view does not image all digits. There is no evidence of an acute fracture or destructive osseous lesion on this limited exam. IMPRESSION: No evidence of an acute osseous abnormality seen on this limited exam as described above. <Electronically signed by Gerber Ramirez > 01/05/21 9030
== END ==
LOC: M RAD 10:50
PROVIDERS: ATTEND Internal Medicine
DX: M25.541 Pain in joints of right hand (principal); M79.89 Other specified soft tissue disorders

== ENCOUNTER → 2021-01-05 | Outpatient (REF) | payer MEDICARE, BC | LOC: SKLAB8 07:00 | PROVIDERS: ATTEND Internal Medicine | DX: Z53.9 Procedure and treatment not carried out, unspecified reason (principal) ==

== ENCOUNTER → 2021-01-06 | Outpatient (REF) | payer MEDICARE, BC | LOC: SKLAB8 05:17 | PROVIDERS: ATTEND Internal Medicine | DX: Z20.822 Contact with and (suspected) exposure to COVID-19 (principal) ==

== ENCOUNTER → 2021-01-08 | Outpatient (REF) | payer MEDICARE, BC ==
[2021-01-08 10:11] LABS: HEMATOCRIT 40.9 % (42.0-52.0); HEMOGLOBIN 13.2 g/dl (13.5-17.5); MEAN CORPUSCULAR HEMOGLOBIN 29.8 pg (27.0-33.0); MEAN CORPUSCULAR HGB CONC 32.3 g/dl (32.0-36.5); MEAN CORPUSCULAR VOLUME 92.3 fl (80.0-96.0); PLATELET COUNT, AUTOMATED 182 10^3/uL (150-450); RED BLOOD COUNT 4.43 10^6/uL (4.30-6.10); WHITE BLOOD COUNT 10.7 10^3/uL (4.0-10.0)
[2021-01-08 10:54] LABS: BLOOD UREA NITROGEN 29 MG/DL (7-18); CALCIUM LEVEL 8.8 MG/DL (8.8-10.2); CARBON DIOXIDE LEVEL 25 MEQ/L (21-32); CHLORIDE LEVEL 111 MEQ/L (98-107); CREATININE FOR GFR 1.13 MG/DL (0.70-1.30); GLOMERULAR FILTRATION RATE > 60.0 (>35); GLUCOSE, FASTING 135 MG/DL (70-100); POTASSIUM SERUM 5.1 MEQ/L (3.5-5.1); SODIUM LEVEL 142 MEQ/L (136-145)
== END ==
LOC: SKLAB2 07:00
PROVIDERS: ATTEND Internal Medicine
DX: U07.1 COVID-19 (principal); Z79.899 Other long term (current) drug therapy

== ENCOUNTER → 2021-01-10 | Outpatient (REF) | payer MEDICARE, BC ==
[~2021-01-10] MED LIST changes: +ASPI1CHW3 PO; +ENSU1LIQ50 PO; +MELA10CA2 PO; +MOM30SS2 PO; +PROAAER10 INH; +QUET1TAB17 PO; +SENN1TAB41 PO; +SORB70SO36 PO; +SYNT75TA PO; +TRAZ-252 PO
[2021-01-10 09:32] LABS: HEMATOCRIT 40.7 % (42.0-52.0); MEAN CORPUSCULAR HEMOGLOBIN 28.6 pg (27.0-33.0); MEAN CORPUSCULAR HGB CONC 31.9 g/dl (32.0-36.5); MEAN CORPUSCULAR VOLUME 89.6 fl (80.0-96.0); PLATELET COUNT, AUTOMATED 290 10^3/uL (150-450); RED BLOOD COUNT 4.54 10^6/uL (4.30-6.10); WHITE BLOOD COUNT 5.8 10^3/uL (4.0-10.0)
[2021-01-10 10:18] LABS: BLOOD UREA NITROGEN 22 MG/DL (7-18); CALCIUM LEVEL 8.8 MG/DL (8.8-10.2); CARBON DIOXIDE LEVEL 26 MEQ/L (21-32); CHLORIDE LEVEL 107 MEQ/L (98-107); CREATININE FOR GFR 0.75 MG/DL (0.70-1.30); GLOMERULAR FILTRATION RATE > 60.0 (>35); GLUCOSE, FASTING 89 MG/DL (70-100); POTASSIUM SERUM 3.9 MEQ/L (3.5-5.1); SODIUM LEVEL 140 MEQ/L (136-145)
== END ==
LOC: SKLAB2 09:43
PROVIDERS: ATTEND Internal Medicine
DX: U07.1 COVID-19 (principal); Z79.899 Other long term (current) drug therapy

== ENCOUNTER → 2021-01-10 | Outpatient (REF) | payer MEDICARE, BC ==
--- NOTE | 2021-01-11 21:22 | ECGEPIP ---
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 Order Number: [id number] Reading MD: Marie Byers Measurements Intervals [place] Rate: 41 P: [place]: QRS: 88 QRSD: 154 T: 270 QT: 520 QTc: 429 Interpretive Statements Atrial fibrillation with slow ventricular response with a competing junctional pacemaker with premature ventricular or aberrantly conducted complexes and with ventricular escape complexes Nonspecific intraventricular block Minimal voltage criteria for LVH, may be normal variant ( Nish product ) COMPARED TO 08/31/20 HR is much slower but QRS complex is more narrow Electronically Signed on 01-11-2021 21:22:05 EDT by Marie Byers
== END ==
LOC: M EKG 16:32
PROVIDERS: ATTEND Nurse Practitioner Family
DX: R00.1 Bradycardia, unspecified (principal); I48.91 Unspecified atrial fibrillation; Z95.0 Presence of cardiac pacemaker

== ENCOUNTER → 2021-01-12 | Outpatient (REF) | payer MEDICARE, BC ==
[~2021-01-12] MED LIST changes: -ASPI1CHW3 PO; -ENSU1LIQ50 PO; -MELA10CA2 PO; -MOM30SS2 PO; -PROAAER10 INH; -QUET1TAB17 PO; -SENN1TAB41 PO; -SORB70SO36 PO; -SYNT75TA PO; -TRAZ-252 PO
[2021-01-12 10:08] LABS: HEMATOCRIT 41.9 % (42.0-52.0); HEMOGLOBIN 13.7 g/dl (13.5-17.5); MEAN CORPUSCULAR HGB CONC 32.7 g/dl (32.0-36.5); MEAN CORPUSCULAR VOLUME 91.7 fl (80.0-96.0); PLATELET COUNT, AUTOMATED 236 10^3/uL (150-450); RED BLOOD COUNT 4.57 10^6/uL (4.30-6.10); WHITE BLOOD COUNT 8.4 10^3/uL (4.0-10.0)
[2021-01-12 10:42] LABS: BLOOD UREA NITROGEN 25 MG/DL (7-18); CALCIUM LEVEL 9.1 MG/DL (8.8-10.2); CARBON DIOXIDE LEVEL 29 MEQ/L (21-32); CHLORIDE LEVEL 114 MEQ/L (98-107); GLOMERULAR FILTRATION RATE > 60.0 (>35); GLUCOSE, FASTING 127 MG/DL (70-100); POTASSIUM SERUM 3.7 MEQ/L (3.5-5.1); SODIUM LEVEL 148 MEQ/L (136-145)
== END ==
LOC: SKLAB2 07:00
PROVIDERS: ATTEND Internal Medicine
DX: U07.1 COVID-19 (principal); Z79.899 Other long term (current) drug therapy

== ENCOUNTER → 2021-01-14 | Outpatient (REF) | payer MEDICARE, BC ==
[2021-01-14 10:08] LABS: HEMATOCRIT 44.5 % (42.0-52.0); HEMOGLOBIN 13.9 g/dl (13.5-17.5); MEAN CORPUSCULAR HEMOGLOBIN 29.6 pg (27.0-33.0); MEAN CORPUSCULAR HGB CONC 31.2 g/dl (32.0-36.5); MEAN CORPUSCULAR VOLUME 94.9 fl (80.0-96.0); PLATELET COUNT, AUTOMATED 224 10^3/uL (150-450); RED BLOOD COUNT 4.69 10^6/uL (4.30-6.10); WHITE BLOOD COUNT 9.2 10^3/uL (4.0-10.0)
[2021-01-14 10:27] LABS: BLOOD UREA NITROGEN 21 MG/DL (7-18); CALCIUM LEVEL 8.8 MG/DL (8.8-10.2); CARBON DIOXIDE LEVEL 26 MEQ/L (21-32); CHLORIDE LEVEL 117 MEQ/L (98-107); CREATININE FOR GFR 0.89 MG/DL (0.70-1.30); GLOMERULAR FILTRATION RATE > 60.0 (>35); GLUCOSE, FASTING 103 MG/DL (70-100); POTASSIUM SERUM 3.7 MEQ/L (3.5-5.1); SODIUM LEVEL 148 MEQ/L (136-145)
== END ==
LOC: SKLAB2 08:08
PROVIDERS: ATTEND Internal Medicine
DX: U07.1 COVID-19 (principal); Z79.899 Other long term (current) drug therapy

== ENCOUNTER → 2021-01-15 | Outpatient (REF) | payer MEDICARE, BC ==
[2021-01-15 08:14] LABS: BLOOD UREA NITROGEN 18 MG/DL (7-18); CALCIUM LEVEL 8.5 MG/DL (8.8-10.2); CARBON DIOXIDE LEVEL 26 MEQ/L (21-32); CHLORIDE LEVEL 116 MEQ/L (98-107); CREATININE FOR GFR 0.83 MG/DL (0.70-1.30); GLOMERULAR FILTRATION RATE > 60.0 (>35); GLUCOSE, FASTING 106 MG/DL (70-100); SODIUM LEVEL 149 MEQ/L (136-145)
== END ==
LOC: SKLAB2 07:00
PROVIDERS: ATTEND Internal Medicine
DX: E87.0 Hyperosmolality and hypernatremia (principal)

== ENCOUNTER → 2021-01-16 | Outpatient (REF) | payer MEDICARE, BC ==
[~2021-01-16] MED LIST changes: +ASPI1CHW3 PO; +ENSU1LIQ50 PO; +MELA10CA2 PO; +MOM30SS2 PO; +PROAAER10 INH; +QUET1TAB17 PO; +SENN1TAB41 PO; +SORB70SO36 PO; +SYNT75TA PO; +TRAZ-252 PO
== END ==
LOC: SKLAB2 07:00
PROVIDERS: ATTEND Internal Medicine
DX: E87.0 Hyperosmolality and hypernatremia (principal); Z53.9 Procedure and treatment not carried out, unspecified reason

== ENCOUNTER → 2021-01-17 | Outpatient (REF) | payer MEDICARE, BC ==
[~2021-01-17] MED LIST changes: -ASPI1CHW3 PO; -ENSU1LIQ50 PO; -MELA10CA2 PO; -MOM30SS2 PO; -PROAAER10 INH; -QUET1TAB17 PO; -SENN1TAB41 PO; -SORB70SO36 PO; -SYNT75TA PO; -TRAZ-252 PO
[2021-01-17 11:20] LABS: HEMATOCRIT 41.1 % (42.0-52.0); HEMOGLOBIN 13.1 g/dl (13.5-17.5); MEAN CORPUSCULAR HEMOGLOBIN 29.2 pg (27.0-33.0); MEAN CORPUSCULAR HGB CONC 31.9 g/dl (32.0-36.5); MEAN CORPUSCULAR VOLUME 91.7 fl (80.0-96.0); PLATELET COUNT, AUTOMATED 282 10^3/uL (150-450); RED BLOOD COUNT 4.48 10^6/uL (4.30-6.10)
[2021-01-17 11:52] LABS: BLOOD UREA NITROGEN 18 MG/DL (7-18); CALCIUM LEVEL 8.6 MG/DL (8.8-10.2); CARBON DIOXIDE LEVEL 25 MEQ/L (21-32); CHLORIDE LEVEL 112 MEQ/L (98-107); CREATININE FOR GFR 0.93 MG/DL (0.70-1.30); GLOMERULAR FILTRATION RATE > 60.0 (>35); GLUCOSE, FASTING 141 MG/DL (70-100); POTASSIUM SERUM 4.2 MEQ/L (3.5-5.1); SODIUM LEVEL 145 MEQ/L (136-145)
== END ==
LOC: SKLAB2 11:01
PROVIDERS: ATTEND Internal Medicine
DX: U07.1 COVID-19 (principal); Z79.899 Other long term (current) drug therapy

== ENCOUNTER → 2021-01-20 | Outpatient (REF) | payer MEDICARE, BC ==
[~2021-01-20] MED LIST changes: +ASPI1CHW3 PO; +CEFD300CAP PO; +ENSU1LIQ50 PO; +LOSA50TA28 PO; -LOSA50TA88 PO; +MELA10CA2 PO; +MOM30SS2 PO; +PROAAER10 INH; +QUET1TAB17 PO; +SENN1TAB41 PO; +SORB70SO36 PO; +SYNT75TA PO; +TRAZ-252 PO
[2021-01-20 11:09] LABS: BLOOD UREA NITROGEN 21 MG/DL (7-18); CARBON DIOXIDE LEVEL 24 MEQ/L (21-32); CHLORIDE LEVEL 108 MEQ/L (98-107); CREATININE FOR GFR 0.93 MG/DL (0.70-1.30); GLOMERULAR FILTRATION RATE > 60.0 (>35); GLUCOSE, FASTING 161 MG/DL (70-100); POTASSIUM SERUM 4.3 MEQ/L (3.5-5.1); SODIUM LEVEL 140 MEQ/L (136-145)
== END ==
LOC: SKLAB2 07:00
PROVIDERS: ATTEND Internal Medicine
DX: R63.4 Abnormal weight loss (principal); Z86.16 Personal history of COVID-19

== ENCOUNTER 2021-01-23 19:05 | Inpatient (IN) | payer MEDICARE, BC ==
[~2021-01-23] VITALS: Ht 172.7 cm; Wt 69.7 kg
[~2021-01-23 19:05] MED LIST changes: -ASPI1CHW3 PO; -ENSU1LIQ50 PO; -MELA10CA2 PO; -MOM30SS2 PO; -PROAAER10 INH; -QUET1TAB17 PO; -SENN1TAB41 PO; -SORB70SO36 PO; -SYNT75TA PO; -TRAZ-252 PO
--- OUTSIDE RECORDS SUMMARY | 2021-01-23 19:08 | CCD | Continuity of Care Document ---
Author Author Shiv LIMA MD Organization Unknown Address [id number] [place] [address] , [facility] [address] [place] [address] Phone [phone] Care Team Providers Care Pattern Illustrator Name Role Phone AUTM Unavailable Problems Description No Information Available Social History Type Date Description Comments Sex Unknown ETOH Use Denies alcohol use Tobacco Use Start: Unknown Denies Smoking Recreational Drug Use Denies Drug Use Allergies, Adverse Reactions, Alerts Active Allergies Criticality Reaction | Severity Comments Date Ciprofloxacin Unable to assess criticality 07/29/2019 Ciprofloxacin Unable to assess criticality 07/29/2019 Clindamycin Unable to assess criticality 07/29/2019 Iodine Unable to assess criticality 07/29/2019 Latex Unable to assess criticality 07/29/2019 Milk-Related Compounds Unable to assess criticality 07/29/2019 Tomatoes Unable to assess criticality 07/29/2019 Adhesives Unable to assess criticality Hives, tape 09/28/2020 Medications Active Medications SIG Qnty Indications Ordering Provide r Date Levalbuterol HCL 1.25mg/3ML Nebuli zer Use 1 Vial Via Nebulizer Four Times A Day as Needed 1080units Kimani Jauregui, DO 11/19/2018 Ventolin HFA 108(90Base) mcg/Act A erosol Inhale 2 Puffs By Mouth Four Times Daily as Needed 54units J68.4 Kimani Jauregui, DO 01/02/2017 Pulmicort 0.5mg/2ML Suspension 1 vial via neb twice a day dx J44.9 180units Kimani Jauregui, DO Trazodone HCL 100mg Tablets take 1 tablets by mouth at bedtime Unknown Losartan Potassium 50mg Tablets 1 by mouth every day Unknown Xopenex 1.25mg/3ML Nebulizer 1 Vial Via Neb Four Times A Day as Needed DX J68.4 1080units Kimani Jauregui, DO Memantine HCL 5mg Tablets 1 by mouth every day Unknown Metformin HCL 500mg Tablets 1 tabs by mouth twice a day Unknown Donepezil HCL 10mg Tablets 1 by mouth every day Unknown Atorvastatin Calcium 40mg Tablets 1 po qd Unknown Vitamin B-12 1000mcg Tablets Sub 1 po qd Unknown Fish Oil 1000mg Capsules 1 po qd Unknown Vitamin C 500mg Chewtabs 1 po qd Unknown Bufferin Low Dose 81mg Tablets 1 po qd Unknown Quetiapine Fumarate 50mg Tablets Unknown Melatonin 5mg Capsules 2 tab by mouth at bedtime Unknown Immunizations CPT Code Status Date Vaccine Lot # [id number] Given 01/01/2017 Influenza Virus Split 3 Yrs And Above For Intramuscular Use 49199 Given 12/29/2015 Influenza Virus Split 3 Yrs And Above For Intramuscular Use 52961 Given 01/02/2012 Influenza Virus Split 3 Yrs And Above For Intramuscular Use 84459 Given 12/27/2010 Influenza Virus Split 3 Yrs And Above For Intramuscular Use 07099 Given 12/16/2009 Influenza Virus Split 3 Yrs And Above For Intramuscular Use Vital Signs Date Vital Result Comment 09/28/2020 10:26am Body Temperature 97.5 F Results Description No Information Available Procedures Date Code Description Status 09/28/2020 51485 Office/Outpatient New Low MDM 30 -44 Minutes Completed 09/28/2020 81025 FX Metacarpal W/O Manipulation C ompleted Medical Devices Description No Information Available Encounters Type Date Location Provider Dx Diagnosis Office Visit 10/28/2020 10:15a [facility] Salty Lima MD S62.301D Unsp fx second MC bone, left hand, subs for fx w routn heal Office Visit 09/28/2020 10:30a [facility] Salty Lima MD S62.301A Unsp fracture of second metacarpal bone, left hand, init W19.xxxA Unspecified fall, initial en counter Assessments Date Code Description Provider 10/28/2020 S62.301D Unspecified fracture of second metacarpal bone, left hand, subsequent encounter for fracture with routine healing Salty Lima MD 09/28/2020 S62.301A Unspecified fracture of second metacarpal bone, left hand, initial encounter for closed fracture Salty Lima MD 09/28/2020 W19.xxxA Unspecified fall, initial encoun ter Salty Lima MD Plan of Treatment No Information Available Functional Status Description No Information Available Mental Status Description No Information Available Referrals Description No Information Available"
--- OUTSIDE RECORDS SUMMARY | 2021-01-23 19:09 | CCD ---
Author Author [facility] Organization [facility] Address Unknown Phone Unavailable Care Team Providers Care Pvc Monitor Name Role Phone Zuhair Guido MD Unavailable Unavailable Mollison, Zuhair Pond MD Unavailable Unavailable Mollison, Zuhair Pond MD Unavailable Unavailable Mollison, Zuhair Pond MD Unavailable Unavailable Mollison, Zuhair Pond MD Unavailable Unavailable Mollison, Zuhair Pond MD Unavailable Unavailable Mollison, Zuhair Pond MD Unavailable Unavailable Mollison, Zuhair Pond MD Unavailable Unavailable Mollison, Zuhair Pond MD Unavailable Unavailable Mollison, Zuhair Pond MD Unavailable Unavailable Mollison, Zuhair Pond MD Unavailable Unavailable Mollison, Zuhair Pond MD Unavailable Unavailable Mollison, Zuhair Pond MD Unavailable Unavailable Mollison, Zuhair Pond MD Unavailable Unavailable Mollison, Zuhair Pond MD Unavailable Unavailable Mollison, Zuhair Pond MD Unavailable Unavailable Mollison, Zuhair Pond MD Unavailable Unavailable Mollison, Zuhair Pond MD Unavailable Unavailable Mollison, Zuhair Pond MD Unavailable Unavailable MollisonZuhair MD Unavailable Unavailable MollisonZuhair MD Unavailable Unavailable MollisonZuhair MD Unavailable Unavailable MollisonZuhair MD Unavailable Unavailable MollisonZuhair MD Unavailable Unavailable Mollison, Zuhair Pond MD Unavailable Unavailable Mollison, Zuhair Pond MD Unavailable Unavailable Mollison, Zuhair Pond MD Unavailable Unavailable Mollison, Zuhair Pond MD Unavailable Unavailable Mollison, Zuhair Pond MD Unavailable Unavailable Mollison, Zuhair Pond MD Unavailable Unavailable Re-disclosure Warning The records that you are about to access may contain information from federally-assisted alcohol or drug abuse programs. If such information is present, then the following federally mandated warning applies: This information has been disclosed to you from records protected by federal confidentiality rules (42 CFR part 2). The federal rules prohibit you from making any further disclosure of this information unless further disclosure is expressly permitted by the written consent of the person to whom it pertains or as otherwise permitted by 42 CFR part 2. A general authorization for the release of medical or other information is NOT sufficient for this purpose. The Federal rules restrict any use of the information to criminally investigate or prosecute any alcohol or drug abuse patient.The records that you are about to access may contain highly sensitive health information, the redisclosure of which is protected by Article 27-F of the [facility] Public Health law. If you continue you may have access to information: Regarding HIV / AIDS; Provided by facilities licensed or operated by the [facility] Office of Mental Health; or Provided by the [facility] Office for People With Developmental Disabilities. If such information is present, then the following [facility] mandated warning applies: This information has been disclosed to you from confidential records which are protected by state law. State law prohibits you from making any further disclosure of this information without the specific written consent of the person to whom it pertains, or as otherwise permitted by law. Any unauthorized further disclosure in violation of state law may result in a fine or fci sentence or both. A general authorization for the release of medical or other information is NOT sufficient authorization for further disc losure. Family History Family Member Name Family Member Gender Family Member Status Date o f Status Description Data Source(s) Unknown Male Problem [facility] ([facility]) Unknown Unknown Problem [facility] Unknown Female Encounters Encounter Providers Location Date Indications Data Source(s ) Office Visit Attender: Salty Paris/Lainey/Timothy/Re indl 10/28/2020 10:15:00 AM EDT [facility] ([facility] Outpatient Attender: Salty Paris/Lainey/Timothy/Re indl 09/28/2020 10:30:00 AM EDT [facility] ([facility]) Immunizations Vaccine Date Status Description Data Source(s) COVID-19 VACCINE Pfizer 2020 12:00:00 AM EST completed [facility] Vaccine Series Complete: YESThis Data wa s Submitted to [facility] [employer]. COVID-19 VACCINE Pfizer 03/16/2020 12:00:00 AM EST completed [facility] Vaccine Series Complete: NOThis Data was Submitted to [facility] [employer]. Medications Medication Brand Name Start Date Product Form Dose Route Admi nistrative Instructions Pharmacy Instructions Status Indications Reaction Description Data Source(s) 50 mg 09/28/2020 12:00:00 AM EDT tablet 3 TAKE ONE-HALF TABLET BY MOUTH EVERY DAY AT BEDTIME TAKE ONE-HALF TABLET BY MOUTH EVERY DAY AT BEDTIME [facility] Insurance Providers Payer name Policy type / Coverage type Policy ID Covered alliance party ID Covered alliance party's relationship to hill Policy [place] Plan Information MEDICARE [id number] SP [id number] A MEDICARE [id number] Cathy [id number] [place] Primary [id number] Self [id number] A MEDICARE [id number] SP [id number] EXCELLUS BCBS [id number] Cathy VYY [id number] BS [place] Trad/[place] Commercial [id number] Self [id number] BS [place] Trad/[place] Medigap Part B [id number] Self [id number] BS Of [place] Medigap Part B [id number] Self [id number] Medicare - NGS Medicare Primary [id number] Self [id number] Excell[facility] Commercial [id number] Self [id number] Medicare Natl Govt Servic Medicare Primary [id number] Self [id number] BS [place] Medigap Part B [id number] Family Dependent [id number] Medicare Natl Govt Servic Medicare Primary [id number] Self [id number] BS Of [place] Medigap Part B [id number] Self [id number] Medicare - NGS Medicare Primary [id number] Self [id number] Medicare Natl Govt Servic Medicare Primary [id number] Self [id number] Medicare Natl Govt Servic Medicare Primary [id number] Self [id number] Medicare Natl Govt Servic Medicare Primary [id number] Self [id number] BS Of [place] Medigap Part B [id number] Self V [id number] Medicare - [place] Medicare Primary [id number] Self [id number] Medicare Natl Govt Servic Medicare Primary [id number] Self [id number] Medicare Natl Govt Servic Medicare Primary [id number] Self [id number] Medicare Natl Govt Servic Medicare Primary [id number] Self [id number] BS [place] Trad/[place] Medigap Part B [id number] Family Depend ent 806 Medicare Natl Govt Servic Medicare Primary [id number] Self EXCELLUS BCBS B [id number] S VYY [id number] MEDICARE C [id number] S [id number] A EXCELLUS BCBS B [id number] S YOM [id number] BC/BS Of [place] Medigap Part B [id number] Self Medicare - NGS Medicare Primary [id number] Self [place] 306/806 [id number] [place] 306/806 [id number] WI2 [id number] [place] 306/806 [id number] SP [id number] EXCELLUS BCBS B [id number] S VYY [id number] MEDICARE C [id number] S [id number] BLUE [place] BLUE SHIELD [id number] 18 [id number] MEDICARE PART A [facility] [id number] 18 [id number] BCBS of [facility] Other 0 [id number] Self 0 Medicare Part B of [facility] Other 0 [id number] Self 0 Problems, Conditions, and Diagnoses No Information Surgeries/Procedures Procedure Description Date Indications Data Source(s) CLTX METACARPAL FX W/O MANIPULATION EACH BONE 09/29/19 21 12:00:00 AM ÁNGEL MENENDEZ ([facility], ) OFFICE OUTPATIENT NEW 30 MINUTES 09/28/2020 12:00:00 A M EDT [facility] ([facility]) OFFICE OUTPATIENT NEW 45 MINUTES 09/28/2020 12:00:00 A M EDT [facility] ([facility]) Results ID Date Data Source [id number] 01/06/2021 11:00:00 AM EDT [facility] Name Value Range Interpretation Code Description Data Ana rce(s) Supporting Document(s) SARS coronavirus 2 RNA [Presence] in Res piratory specimen by CARISSA with probe detection POSITIVE [facility] This lab was ordered by [facility] a nd reported by [facility]. ID Date Data Source [id number] 01/03/2021 11:00:00 AM EDT [facility] Name Value Range Interpretation Code Description Data Ana rce(s) Supporting Document(s) SARS coronavirus 2 RNA [Presence] in Res piratory specimen by CARISSA with probe detection NEGATIVE [facility] This lab was ordered by [facility] a nd reported by [facility]. ID Date Data Source [id number] 12/30/2020 08:17:00 AM EDT [facility] Name Value Range Interpretation Code Description Data Ana rce(s) Supporting Document(s) SARS coronavirus 2 RNA [Presence] in Res piratory specimen by CARISSA with probe detection NEGATIVE [facility] This lab was ordered by [facility] a nd reported by [facility]. ID Date Data Source [id number] 07/26/2020 12:00:00 AM EDT [facility] Name Value Range Interpretation Code Description Data Ana rce(s) Supporting Document(s) SARS coronavirus 2 Ag NEGATIVE [facility] This lab was ordered by [facility] and reported by [facility]. ID Date Data Source [id number] 07/19/2020 12:00:00 AM EDT [facility] Name Value Range Interpretation Code Description Data Ana rce(s) Supporting Document(s) SARS coronavirus 2 Ag NEGATIVE [facility] This lab was ordered by [facility] and reported by [facility]. ID Date Data Source [id number] 07/06/2020 12:00:00 AM EDT [facility] Name Value Range Interpretation Code Description Data Ana rce(s) Supporting Document(s) SARS coronavirus 2 Ag NEGATIVE [facility] This lab was ordered by [facility] and reported by [facility]. ID Date Data Source [id number] 06/11/2020 08:21:00 AM EDT [facility] Name Value Range Interpretation Code Description Data Ana rce(s) Supporting Document(s) SARS coronavirus 2 RNA Not Detected [facility] [place] This lab was ordered by [facility] and reported by [facility]. ID Date Data Source [id number] 05/26/2020 10:30:00 AM EDT [facility] Name Value Range Interpretation Code Description Data Ana rce(s) Supporting Document(s) SARS coronavirus 2 RNA Not Detected [facility] [place] This lab was ordered by [facility] and reported by [facility]. ID Date Data Source [id number] 05/19/2020 07:00:00 AM EST [facility] Name Value Range Interpretation Code Description Data Ana rce(s) Supporting Document(s) SARS coronavirus 2 RNA Not Detected [facility] [place] This lab was ordered by [facility] and reported by [facility]. ID Date Data Source [id number] 05/05/2020 09:44:00 AM EST [facility] Name Value Range Interpretation Code Description Data Ana rce(s) Supporting Document(s) SARS coronavirus 2 RNA Not Detected [facility] [place] This lab was ordered by [facility] and reported by [facility]. ID Date Data Source [id number] 04/28/2020 10:00:00 AM EST [facility] Name Value Range Interpretation Code Description Data Ana rce(s) Supporting Document(s) SARS coronavirus 2 RNA Not Detected [facility] [place] This lab was ordered by [facility] and reported by [facility]. ID Date Data Source [id number] 04/21/2020 09:00:00 AM EST [facility] Name Value Range Interpretation Code Description Data Ana rce(s) Supporting Document(s) SARS coronavirus 2 RNA Not Detected [facility] [place] This lab was ordered by [facility] and reported by [facility]. ID Date Data Source [id number] 04/14/2020 09:01:00 AM EST [facility] Name Value Range Interpretation Code Description Data Ana rce(s) Supporting Document(s) SARS coronavirus 2 RNA Not Detected [facility] [place] This lab was ordered by [facility] and reported by [facility]. ID Date Data Source [id number] 04/07/2020 10:30:00 AM EST [facility] Name Value Range Interpretation Code Description Data Ana rce(s) Supporting Document(s) SARS coronavirus 2 RNA Not Detected [facility] [place] This lab was ordered by [facility] and reported by [facility]. ID Date Data Source [id number] 03/31/2020 07:00:00 AM EST [facility] Name Value Range Interpretation Code Description Data Ana rce(s) Supporting Document(s) SARS coronavirus 2 RNA Not Detected [facility] [place] This lab was ordered by [facility] and reported by [facility]. ID Date Data Source [id number] 03/24/2020 11:00:00 AM EST [facility] Name Value Range Interpretation Code Description Data Ana rce(s) Supporting Document(s) SARS coronavirus 2 RNA Not Detected [facility] [place] This lab was ordered by [facility] and reported by [facility]. ID Date Data Source [id number] 03/17/2020 11:00:00 AM EST [facility] Name Value Range Interpretation Code Description Data Ana rce(s) Supporting Document(s) SARS coronavirus 2 RNA Not Detected [facility] [place] This lab was ordered by [facility] and reported by [facility]. ID Date Data Source [id number] 03/10/2020 09:00:00 AM EST [facility] Name Value Range Interpretation Code Description Data Ana rce(s) Supporting Document(s) SARS coronavirus 2 RNA [facility] This lab was ordered by [facility] and reported by [facility]. ID Date Data Source [id number] 03/03/2020 11:00:00 AM EST [facility] Name Value Range Interpretation Code Description Data Ana rce(s) Supporting Document(s) SARS coronavirus 2 RNA [facility] This lab was ordered by [facility] and reported by [facility]. ID Date Data Source [id number] 02/25/2020 10:06:00 AM EST [facility] Name Value Range Interpretation Code Description Data Ana rce(s) Supporting Document(s) SARS coronavirus 2 RNA [facility] This lab was ordered by [facility] and reported by [facility]. ID Date Data Source [id number] 02/18/2020 10:30:00 AM EST [facility] Name Value Range Interpretation Code Description Data Ana rce(s) Supporting Document(s) SARS coronavirus 2 RNA [facility] This lab was ordered by [facility] and reported by [facility]. ID Date Data Source [id number] 02/11/2020 02:00:00 PM EST [facility] Name Value Range Interpretation Code Description Data Ana rce(s) Supporting Document(s) SARS coronavirus 2 RNA [facility] This lab was ordered by [facility] and reported by [facility]. ID Date Data Source [id number] 02/04/2020 06:00:00 AM EST [facility] Name Value Range Interpretation Code Description Data Ana rce(s) Supporting Document(s) SARS coronavirus 2 RNA [facility] This lab was ordered by [facility] and reported by [facility]. ID Date Data Source [id number] 01/28/2020 10:25:00 AM EST [facility] Name Value Range Interpretation Code Description Data Ana rce(s) Supporting Document(s) SARS coronavirus 2 RNA [facility] This lab was ordered by [facility] and reported by [facility]. ID Date Data Source [id number] 01/22/2020 01:36:00 PM EST [facility] Name Value Range Interpretation Code Description Data Ana rce(s) Supporting Document(s) SARS coronavirus 2 RNA [facility] This lab was ordered by [facility] and reported by [facility]. Procedure Social History No Information Vital Signs ID Date Data Source UNK Name Value Range Interpretation Code Description Data Source(s) Body temperature 97.5 [degF] 97.5 [degF] [facility] ([facility], )
--- OUTSIDE RECORDS SUMMARY | 2021-01-23 19:09 | CCD | Continuity of Care Document ---
Author Author Shiv LIMA MD Organization Unknown Address [address] [place] [address] , [facility] [address] [place] [address] Phone [phone] Care Team Providers Care Professor Of Biochemistry Name Role Phone AUTM Unavailable Problems Description [...] CPT Code Status Date Vaccine Lot # 30052 Given 01/01/2017 Influenza Virus Split 3 Yrs And Above For Intramuscular Use 98690 Given 12/29/2015 Influenza Virus Split 3 Yrs And Above For Intramuscular Use 17386 Given 01/02/2012 Influenza Virus Split 3 Yrs And Above For Intramuscular Use 49613 Given 12/27/2010 Influenza Virus Split 3 Yrs And Above For Intramuscular Use 33807 Given 12/16/2009 Influenza Virus Split 3 Yrs And Above For Intramuscular Use Vital Signs Date Vital Result Comment 09/28/2020 10:26am Body Temperature 97.5 F Results Description No Information Available Procedures Date Code Description Status 09/28/2020 18236 Office/Outpatient New Low MDM 30 -44 Minutes Completed 09/28/2020 38012 FX Metacarpal W/O Manipulation C ompleted Medical [...]
[2021-01-23] MEDS ORDERED: cefTRIAXone SOD 2 GM in D5W MINI-BAG PLUS 50 ML IV ONE (19:40)
[2021-01-23] MEDS ORDERED: NS 1,000 ML IV ONE (19:40)
[2021-01-23 19:56] LABS: VENOUS BASE EXCESS -3.7 (-2.0-2.0); VENOUS HCO3 19.5 MEQ/L (23.0-27.0); VENOUS O2 SATURATION 90.5 % (60.0-80.0); VENOUS PARTIAL PRESSURE CO2 30.1 mmHg (38.0-50.0); VENOUS PARTIAL PRESSURE O2 61.2 mmHg (30.0-50.0); VENOUS STANDARD HCO3 21.3 MEQ/L; VENOUS TOTAL CO2 20.5 MEQ/L (24.0-28.0)
--- NOTE | 2021-01-23 20:23 | ECGEPIP ---
[facility] - ED Test Date: 2021-01-23 Pat Name: RYAN LI Department: Room: - Gender: Male Intramural Director: JERICHO : 1935 Requested By: SOL Yost Order Number: [id number] Reading MD: Kimani Fernández Measurements Intervals [place] Rate: 38 P: SC: QRS: -75 QRSD: 158 T: 103 QT: 700 QTc: 556 Interpretive Statements afib with slow ventricular response Left axis deviation Right bundle branch block T wave abnormality, consider lateral ischemia Prolonged QTc interval new from tracing done 01-10-21 Electronically Signed on 01-23-2021 20:23:21 EST by Kimani Fernández
[2021-01-23] MEDS ORDERED: QUEtiapine FUMARATE 25 MG TAB PO SCH (21:00)
[2021-01-23] MEDS ORDERED: TRAZ-252 PO (21:07)
[2021-01-23] MEDS ORDERED: ASPI1CHW3 PO (21:07)
[2021-01-23] MEDS ORDERED: MOM30SS2 PO (21:07)
[2021-01-23] MEDS ORDERED: MELA10CA2 PO (21:07)
[2021-01-23] MEDS ORDERED: SYNT75TA PO (21:07)
[2021-01-23] MEDS ORDERED: QUET1TAB17 PO (21:07)
[2021-01-23] MEDS ORDERED: PROAAER10 INH (21:08)
[2021-01-23] MEDS ORDERED: ENSU1LIQ50 PO (21:08)
[2021-01-23] MEDS ORDERED: SENN1TAB41 PO (21:08)
[2021-01-23] MEDS ORDERED: SORB70SO36 PO (21:08)
[2021-01-23] MEDS ORDERED: HOME MED LIST COMPLETE! XX SCH (21:10)
[2021-01-23] MEDS ORDERED: ACETAMINOPHEN TAB 650MG DOSE (2X325MG) PO PRN (21:35)
[2021-01-23] MEDS ORDERED: MOM 30ML SUSPENSION UDC PO PRN (21:35)
[2021-01-23] MEDS ORDERED: MAALOX 30 ML SUSP *UDC PO PRN (21:35)
--- NOTE | 2021-01-23 21:39 | HPEPDOC ---
[facility] Medical History & Physical Date of Admission Jan 23, 2021 Date of Service: Jan 23, 2021 History and Physical CHIEF COMPLAINT: fever HISTORY OF PRESENT ILLNESS: 85 yo M with a PMHx of atrial fibrillation with slow rate, CAD s/p CABG, COPD, advanced dementia. He developed fever, and cough, and was found to have elevated WBC, as well as consolidation in the R middle lung lobe. He was sent to [facility] ER for treatment of his pneumonia. That patient has advanced dementia and is non verbal at baseline. He is found to have atrial fibrillation with slow ventricular response, prevously noted on EKG in 03/2019. He is currently at a rate of ~35-42 BPM. Patient follows with Dr. Byers. I spoke to patient's daughter Donis Ellington ([phone]). DNR/DNI status was re- affirmed. She states that cardiology is aware of his afib, and it was determined that he is not a candidate for a pacemaker. She does not wish for him to be paced or paced on pressors should he become hemodynamically unstable. He was given a dose of IV ceftriaxone in the ER. Blood cultures had not been drawn. patient will be admitted to hospitalist service for the treatment of hospital- acquired pneumonia. PAST MEDICAL HISTORY: Type 2 diabetes mellitus, diet controlled. 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 Hypercholesterolemia. Diabetic peripheral neuropathy. COPD. Dementia, Alzheimer's type, late onset. Behavioral and psychological symptoms of dementia. Insomnia. Hypothyroidism. NM stress test 11/2017 - small apical defect with a small to moderate sized area of ischemia DEVAN non compliant with CPAP PAST SURGICAL HISTORY: obtained from chart review Coronary artery stent 2001. CABG 2013: REDMOND to LAD and saphenous to diagonal and obtuse marginal Stent 2001 Knee replacement Colonoscopy in 2005 - wnl SOCIAL HISTORY: Resident at [facility]. FAMILY HISTORY: Unable to be obtained ALLERGIES: Please see below. REVIEW OF SYSTEMS: Unable to complete ROS, patient is non verbal at baseline, disoriented HOME MEDICATIONS: Please see below. PHYSICAL EXAMINATION: VITAL SIGNS: please see below General: non verbal, recoiling to verbal prompt HEENT: PERRLA, EOMI, sclerae clear Neck: supple, normal ROM, no JVD Respiratory: fair inspiratory effort, rales at R lung base CVS: RRR, normal S1, S2, no murmurs Abdo: soft, no masses, no hepatosplenomegaly, BS+, no rebound tenderness Extremities: 1+ pitting edema, multiple small ulcerations on toes, with surrounding erythema extending to mid leg MSK: no joint deformities, normal ROM Neuro: no focal neuro deficits, moving all 4 extremities, CN2-12 intact. Strength 5/5 in all 4 extremities. No nystagmus. Psych: calm, cooperative, AAO x 3 LABORATORY DATA: See below. IMAGING: CXR (01/23/21): 1. Right middle lobe lobar pneumonia. 2. Cardiomegaly. Status post CABG surgery. MICROBIOLOGY: Please see below. ASSESSMENT: 85 yo M with a PMHx of atrial fibrillation with slow rate, CAD s/p CABG. He developed fever, and cough, and was found to have elevated WBC, as well as consolidation in the R middle lung lobe, as well as cellulitis. Meets sepsis criteria. In afib with slow ventricular rate, not a candidate for pacemaker, per report. . PLAN: #Sepsis 2/2 Hospital acquired pna (resident at [facility]) as well as possibly cellulitis - sepsis criteria based on reported fever, WBC 19.7, LA 3.3, now improved to 2.1 s/p NS bolus. - given ceftriaxone in ER. Cultures were not drawn - ordered blood cx x 2. Sputum cultures - given residency at [facility], assume HAP - convert to cefepime and vancomycin (avoid levaquin due to prolonged qtc) - check procal, ESR, CRP. #Cellulitis - on vanco, cefepime. MRSA screen pending - check venous duplex - f/u blood cultures #Atrial fibrillation with slow ventricular rate - chronic per report - blood pressure 125/78 - follows with Dr. Byers - spoke with patient's daughter, Mary Ellington (tel [phone]) - reported that per Dr. Byers, not a candidate for pacemaker - she does not wish for pacing or pressors in the event of hemodynamic instability - will ask day team to please d/w Dr. Byers additional cardiac hx and plan of care - patient is presently not on anticoagulation. #Dementia, advanced - patient is non verbal at baseline - requires 24/7 care - will hold seroquel 25 mg, as patient's QTc is prolonged. #Prolonged QTc - monitor electrolytes - repeat EKG in am - hold seroquel - avoid qt prolonging medications #hypothyroidism - c/w levothyroxine #Diastolic congestive heart failure - has 1+ pitting edema, possibly chronic - no crackles on lung auscultation - will add on BNP - DC fluids, s/p 1500 cc bolus in ER - obtain 2D echo Hx of CAD - c/w ASA and statin DEVAN - non compliant with CPAP - monitor O2, may need nocturnal O2 supplementation Hx of COPD - saturating well on RA Dispo: pending clinical improvement. CODE STATUS: DNR/DNI Vital Signs Vital Signs Date Time Temp Pulse Resp B/P (MAP) Pulse Ox O2 Delivery O2 Flow Rate FiO2 01/23/21 21:01 34 28 125/60 (81) 98 Room Air 01/23/21 19:30 99.6 Laboratory Data Labs 24H Laboratory Tests 2 01/23/21 19:44: Blood Gas Bicarbonate Standard 21.3, Venous Blood pH 7.430, Venous Blood Partial Pressure CO2 30.1L, Venous Blood Partial Pressure O2 61.2H, Venous Blood Total Carbon Dioxide 20.5L, Venous Blood HCO3 19.5L, Venous Blood Oxygen Saturation 90.5H, Venous Blood Base Excess -3.7L, Lactic Acid Level 2.9*H Microbiology Microbiology 01/23/21 Respiratory Virus Panel (PCR) (KARY) - Final, Complete Home Medications Scheduled Aspirin (Aspirin) 81 Mg Tab.chew, 81 MG PO DAILY Atorvastatin Calcium (Atorvastatin Calcium) 40 Mg Tablet, 40 MG PO QHS Levothyroxine Sodium (Synthroid) 75 Mcg Tablet, 75 MCG PO DAILY Melatonin (Melatonin) 10 Mg Capsule, 10 MG PO QHS Nut.tx.impaired Digest Fxn (Ensure Clear) 237 Ml Liquid, 237 ML PO TID Quetiapine Fumarate (Quetiapine Fumarate) 25 Mg Tablet, 25 MG PO QHS Sennosides/Docusate Sodium (Senna-S Tablet) 1 Each Tablet, 2 TAB PO BID Sorbitol Solution (Sorbitol 70%) 1 Ml Solution, 15 ML PO Q2D Trazodone HCl (Trazodone HCl) 50 Mg Tablet, 50 MG PO QHS Scheduled PRN Acetaminophen (Tylenol) 325 Mg Tablet, 650 MG PO Q4H PRN for MILD PAIN or TEMP > 100.4 Albuterol Sulfate (Proair Hfa) 8.5 Gm Hfa.aer.ad, 2 PUFF INH Q4H PRN for SOB/ WHEEZING Bisacodyl (Dulcolax) 10 Mg Supp.rect, 10 MG NH DAILY PRN for CONSTIPATION Magnesium Hydroxide (Milk of Magnesia) 400 Mg/5 Ml Oral.susp, 30 ML PO DAILY PRN for CONSTIPATION Sodium Phosphate,Foster-Dibasic (Fleet Enema) 133 Ml Enema, 1 RAFIA NH DAILY PRN for CONSTIPATION Allergies Coded Allergies: Penicillins (Verified Allergy, Unknown, 06/18/19) latex (Verified Allergy, Unknown, 06/18/19) apple (Unverified Adverse Reaction, Unknown, 06/18/19) lactose (Unverified Adverse Reaction, Unknown, 06/18/19) tomato (Unverified Adverse Reaction, Unknown, HIVES, 06/18/19) A-FIB/CHADSVASC A-FIB History Current/History of A-Fib/PAF?: Yes Current PO Anticoag Therapy: No VANDA DILL MD Jan 23, 2021 21:39
--- OUTSIDE RECORDS SUMMARY | 2021-01-23 21:51 | CCD ---
Author Author [facility] Organization [facility] Address Unknown Phone Unavailable Care Team Providers Care Fire Extinguisher Charger Name Role Phone Zuhair Guido MD Unavailable [...] by Article 27-F of the [facility] Public Health law. If you continue you may have access to information: Regarding HIV / AIDS; Provided by facilities licensed or operated by the [facility] Office of Mental Health; or Provided by the [facility] Office for People With Developmental Disabilities. If such information is present, then the following [facility] mandated warning applies: This information [...] law may result in a fine or long term sentence or both. A general authorization for the release of medical or other information is NOT sufficient authorization for further disc losure. Family History Family Member Name Family Member Gender Family Member Status Date o f Status Description Data Source(s) Unknown Male Problem [facility] ([facility]) Unknown Unknown Problem [facility] Unknown Female Encounters Encounter Providers Location Date Indications Data Source(s ) Office Visit Attender: Salty Paris/Lainey/Timothy/Re indl 10/28/2020 10:15:00 AM EDT [facility] ([facility]) Outpatient Attender: Salty Paris/Lainey/Timothy/Re indl 09/28/2020 10:30:00 AM EDT [facility] ([facility]) Immunizations Vaccine Date Status Description Data Source(s) COVID-19 VACCINE Pfizer 2020 12:00:00 AM EST completed [facility] Vaccine Series Complete: YESThis Data wa s Submitted to [facility] Via [facility]. COVID-19 VACCINE Pfizer 03/16/2020 12:00:00 AM EST completed [facility] Vaccine Series Complete: NOThis Data was Submitted to [facility]. Medications Medication Brand Name Start Date Product [...] to hill Policy [place] Plan Information MEDICARE [id number] SP [id number] A MEDICARE [id number] Cathy [id number] [place] Primary [id number] Self [id number] A MEDICARE [id number] SP [id number] EXCELLUS BCBS [id number] Cathy VYY [id number] BS [place] Trad/[place] Commercial [id number] Self 802 BS [place] Trad/[place] Medigap Part B [id number] Self [id number] BS [place] Medigap Part B [id number] Self [id number] Medicare - [place] Medicare Primary [id number] Self [id number] Excellus [facility] Commercial [id number] Self [id number] Medicare Natl Govt Servic Medicare Primary [id number] Self [id number] BS [place] Medigap Part B [id number] Family Dependent [id number] Medicare Natl Govt Servic Medicare Primary [id number] Self [id number] BS Of [place] Medigap Part B [id number] Self V [id number] Medicare - N[place] Medicare Primary [id number] Self 0 [id number] Medicare Natl Govt Servic Medicare Primary [id number] Self [id number] Medicare Natl Govt Servic Medicare Primary [id number] Self [id number] Medicare Natl Govt Servic Medicare Primary [id number] Self [id number] BS [place] Medigap Part B [id number] Self V [id number] Medicare - [place] Medicare Primary [id number] Self 0 [id number] Medicare Natl Govt Servic Medicare Primary [id number] Self [id number] Medicare Natl Govt Servic Medicare Primary [id number] Self [id number] Medicare Natl Govt Servic Medicare Primary [id number] Self [id number] BS [place] Trad/[place] Medigap Part B [id number] Family Depend ent 806 Medicare Natl Govt Servic Medicare Primary [id number] Self EXCELLUS BCBS B [id number] S VYY [id number] MEDICARE C [id number] S [id number] A EXCELLUS BCBS B [id number] S YOM [id number] BC/BS Of [place] Medigap Part B [id number] Self Medicare - [place] Medicare Primary [id number] Self [place] OF [place] 306/806 [id number] [place] 306/806 [id number] WI2 [id number] [place] 306/806 [id number] SP [id number] EXCELLUS BCBS B [id number] S VYY [id number] MEDICARE C [id number] S [id number] E94 BLUE CROSS BLUE SHIELD [id number] 18 [id number] MEDICARE PART A [facility] [id number] 18 [id number] [address] [facility] Other 0 [id number] Self 0 Medicare Part B of [facility] Other 0 [id number] Self 0 Problems, Conditions, and Diagnoses No Information Surgeries/Procedures Procedure Description Date Indications Data Source(s) CLTX METACARPAL FX W/O MANIPULATION EACH BONE 09/29/19 21 12:00:00 AM ÁNGEL MENENDEZ ([facility], ) OFFICE OUTPATIENT NEW 30 MINUTES 09/28/2020 12:00:00 A M EDT [facility] ([facility]) OFFICE OUTPATIENT NEW 45 MINUTES 09/28/2020 12:00:00 A M EDT [facility] ([facility]) Results ID Date Data Source [id number] 01/06/2021 11:00:00 AM EDT [facility] Name Value Range Interpretation Code Description Data Ana rce(s) Supporting Document(s) SARS coronavirus 2 RNA [Presence] in Res piratory specimen by CARISSA with probe detection POSITIVE [facility] This lab was ordered by [facility] a nd reported by [facility]. ID Date Data Source [id number] 01/03/2021 11:00:00 AM EDT [facility] Name Value Range Interpretation Code Description Data Ana rce(s) Supporting Document(s) SARS coronavirus 2 RNA [Presence] in Res piratory specimen by CARISSA with probe detection NEGATIVE [facility] This lab was ordered by [facility] a nd reported by [facility]. ID Date Data Source [id number] 12/30/2020 08:17:00 AM EDT [facility] Name Value Range Interpretation Code Description Data Ana rce(s) Supporting Document(s) SARS coronavirus 2 RNA [Presence] in Res piratory specimen by CARISSA with probe detection NEGATIVE [facility] This lab was ordered by [facility] a nd reported by [facility]. ID Date Data Source [id number] 07/26/2020 12:00:00 AM EDT [facility] Name Value Range Interpretation Code Description Data Ana rce(s) Supporting Document(s) SARS coronavirus 2 Ag NEGATIVE [facility] This lab was ordered by [facility] and reported by [facility]. ID Date Data Source [id number] 07/19/2020 12:00:00 AM EDT [facility] Name Value Range Interpretation Code Description Data Ana rce(s) Supporting Document(s) SARS coronavirus 2 Ag NEGATIVE [facility] This lab was ordered by [facility] and reported by [facility]. ID Date Data Source [id number] 07/06/2020 12:00:00 AM EDT [facility] Name Value Range Interpretation Code Description Data Ana rce(s) Supporting Document(s) SARS coronavirus 2 Ag NEGATIVE [facility] This lab was ordered by [facility] and reported by [facility]. ID Date Data Source [id number] 06/11/2020 08:21:00 AM EDT [facility] Name Value Range Interpretation Code Description Data Ana rce(s) Supporting Document(s) SARS coronavirus 2 RNA Not Detected [facility] This lab was ordered by [facility] and reported by [facility]. ID Date Data Source [id number] 05/26/2020 10:30:00 AM EDT [facility] Name Value Range Interpretation Code Description Data Ana rce(s) Supporting Document(s) SARS coronavirus 2 RNA Not Detected [facility] [place] This lab was ordered by [facility] and reported by [facility]. ID Date Data Source [id number] 05/19/2020 07:00:00 AM EST [facility] Name Value Range Interpretation Code Description Data Ana rce(s) Supporting Document(s) SARS coronavirus 2 RNA Not Detected [facility] [place] This lab was ordered by [facility] and reported by [facility]. ID Date Data Source [id number] 05/05/2020 09:44:00 AM EST [facility] Name Value Range Interpretation Code Description Data Ana rce(s) Supporting Document(s) SARS coronavirus 2 RNA Not Detected [facility] [place] This lab was ordered by [facility] and reported by [facility]. ID Date Data Source [id number] 04/28/2020 10:00:00 AM EST [facility] Name Value Range Interpretation Code Description Data Ana rce(s) Supporting Document(s) SARS coronavirus 2 RNA Not Detected [facility] [place] This lab was ordered by [facility] and reported by [facility]. ID Date Data Source [id number] 04/21/2020 09:00:00 AM EST [facility] Name Value Range Interpretation Code Description Data Ana rce(s) Supporting Document(s) SARS coronavirus 2 RNA Not Detected [facility] [place] This lab was ordered by [facility] and reported by [facility]. ID Date Data Source [id number] 04/14/2020 09:01:00 AM EST [facility] Name Value Range Interpretation Code Description Data Ana rce(s) Supporting Document(s) SARS coronavirus 2 RNA Not Detected [facility] [place] This lab was ordered by [facility] and reported by [facility]. ID Date Data Source [id number] 04/07/2020 10:30:00 AM EST [facility] Name Value Range Interpretation Code Description Data Ana rce(s) Supporting Document(s) SARS coronavirus 2 RNA Not Detected [facility] [place] This lab was ordered by [facility] and reported by [facility]. ID Date Data Source [id number] 03/31/2020 07:00:00 AM EST [facility] Name Value Range Interpretation Code Description Data Ana rce(s) Supporting Document(s) SARS coronavirus 2 RNA Not Detected [facility] [place] This lab was ordered by [facility] and reported by [facility]. ID Date Data Source [id number] 03/24/2020 11:00:00 AM EST [facility] Name Value Range Interpretation Code Description Data Ana rce(s) Supporting Document(s) SARS coronavirus 2 RNA Not Detected [facility] [place] This lab was ordered by [facility] and reported by [facility]. ID Date Data Source [id number] 03/17/2020 11:00:00 AM EST [facility] Name Value Range Interpretation Code Description Data Ana rce(s) Supporting Document(s) SARS coronavirus 2 RNA Not Detected [facility] [place] This lab was ordered by [facility] and reported by [facility]. ID Date Data Source [id number] 03/10/2020 09:00:00 AM EST [facility] Name Value Range Interpretation Code Description Data Ana rce(s) Supporting Document(s) SARS coronavirus 2 RNA [facility] This lab was ordered by [facility] and reported by [facility]. ID Date Data Source [id number] 03/03/2020 11:00:00 AM EST [facility] Name Value Range Interpretation Code Description Data Ana rce(s) Supporting Document(s) SARS coronavirus 2 RNA [facility] This lab was ordered by [facility] and reported by [facility]. ID Date Data Source [id number] 02/25/2020 10:06:00 AM EST [facility] Name Value Range Interpretation Code Description Data Ana rce(s) Supporting Document(s) SARS coronavirus 2 RNA [facility] This lab was ordered by [facility] and reported by [facility]. ID Date Data Source [id number] 02/18/2020 10:30:00 AM EST [facility] Name Value Range Interpretation Code Description Data Ana rce(s) Supporting Document(s) SARS coronavirus 2 RNA [facility] This lab was ordered by [facility] and reported by [facility]. ID Date Data Source [id number] 02/11/2020 02:00:00 PM EST [facility] Name Value Range Interpretation Code Description Data Ana rce(s) Supporting Document(s) SARS coronavirus 2 RNA [facility] This lab was ordered by [facility] and reported by [facility]. ID Date Data Source [id number] 02/04/2020 06:00:00 AM EST [facility] Name Value Range Interpretation Code Description Data Ana rce(s) Supporting Document(s) SARS coronavirus 2 RNA [facility] This lab was ordered by [facility] and reported by [facility]. ID Date Data Source [id number] 01/28/2020 10:25:00 AM EST [facility] Name Value Range Interpretation Code Description Data Ana rce(s) Supporting Document(s) SARS coronavirus 2 RNA [facility] This lab was ordered by [facility] and reported by [facility]. ID Date Data Source [id number] 01/22/2020 01:36:00 PM EST [facility] Name Value Range Interpretation Code Description Data Ana rce(s) Supporting Document(s) SARS coronavirus 2 RNA [facility] This lab was ordered by [facility] and reported by [facility]. Procedure Social History No Information Vital Signs ID Date Data Source UNK Name Value Range Interpretation Code Description Data Source(s) Body temperature 97.5 [degF] 97.5 [degF] [facility] ([facility], )
--- OUTSIDE RECORDS SUMMARY | 2021-01-23 21:52 | CCD ---
Author Author [facility] Organization [facility] Address Unknown Phone Unavailable Care Team Providers Care Packing Machine Operator Name Role Phone Zuhair Guido MD Unavailable Unavailable Mollison, Zuhair Pond MD Unavailable Unavailable Mollison, Zuhair Pond MD Unavailable Unavailable Mollison, Zuhair Pond MD Unavailable Unavailable Mollison, Zuhair Pond MD Unavailable Unavailable Mollison, Zuhair Pnod MD Unavailable Unavailable Mollison, Zuhair Pond MD [...] is protected by Article 27-F of the [facility] [place] [facility] law. If you continue you may have access to information: Regarding HIV / AIDS; Provided by facilities licensed or operated by the [facility] Office of Mental Health; or Provided by the [facility] Office for People With Developmental Disabilities. If such information is present, then the following [facility] mandated warning applies: This information has been [...] law may result in a fine or [place] health [place] sentence or both. A general authorization for the release of medical or other information is NOT sufficient authorization for further disc losure. Family History Family Member Name Family Member Gender Family Member Status Date o f Status Description Data Source(s) Unknown Male Problem [facility] ([facility]) Unknown Unknown Problem [facility] ([facility]) Unknown Female Encounters Encounter Providers Location Date Indications Data Source(s ) Office Visit Attender: Salty Paris/Lainey/Timothy/Re indl 10/28/2020 10:15:00 AM EDT [facility] ([facility] Outpatient Attender: Salty Paris/Lainey/Timothy/Re indl 09/28/2020 10:30:00 AM EDT [facility] ([facility]) Immunizations Vaccine Date Status Description Data Source(s) COVID-19 VACCINE Pfizer 2020 12:00:00 AM EST completed [facility] Vaccine Series Complete: YESThis Data wa s Submitted to [facility] Via [facility]. COVID-19 VACCINE Pfizer 03/16/2020 12:00:00 AM EST completed [facility] Vaccine Series Complete: NOThis Data was Submitted to [facility]. Medications Medication Brand Name Start Date Product Form Dose Route Admi nistrative Instructions Pharmacy Instructions Status Indications Reaction Description Data Source(s) 50 mg 09/28/2020 12:00:00 AM EDT tablet 3 TAKE ONE-HALF TABLET BY MOUTH EVERY DAY AT BEDTIME TAKE ONE-HALF TABLET BY MOUTH EVERY DAY AT BEDTIME [facility] Insurance Providers Payer name Policy type / Coverage type Policy ID Covered democrat ID Covered democrat's relationship to hill Policy [place] Plan Information MEDICARE [id number] SP [id number] A MEDICARE [id number] Cathy [id number] [place] Primary [id number] Self [id number] A MEDICARE [id number] SP [id number] EXCELLUS BCBS [id number] Cathy VYY [id number] BS [place] Trad/MX Commercial [id number] Self [id number] BS [place] Trad/MX Medigap Part B [id number] Self [id number] BS Of [place] Medigap Part B [id number] Self [id number] Medicare - NGS Medicare Primary [id number] Self [id number] Excellus [facility] Commercial [id number] Self [id number] Medicare Natl Govt Servic Medicare Primary [id number] Self [id number] BS [place] Trad/[place] Medigap Part B [id number] Family Dependent [id number] Medicare Natl Govt Servic Medicare Primary [id number] Self [id number] BS Of [place] Medigap Part B [id number] Self [id number] Medicare - NGS Medicare Primary [id number] Self 0 [id number] Medicare Natl Govt Servic Medicare Primary [id number] Self [id number] Medicare Natl Govt Servic Medicare Primary [id number] Self [id number] Medicare Natl Govt Servic Medicare Primary [id number] Self [id number] BS Of [place] Medigap Part B [id number] Self [id number] Medicare - [place]GS Medicare Primary [id number] Self 0 [id number] Medicare Natl Govt Servic Medicare Primary [id number] Self [id number] Medicare Natl Govt Servic Medicare Primary [id number] Self [id number] Medicare Natl Govt Servic Medicare Primary [id number] Self [id number] BS [place] Trad/[place] Medigap Part B [id number] Family Depend ent 806 Medicare Natl Govt Servic Medicare Primary [id number] Self EXCELLUS BCBS B [id number] S VYY [id number] MEDICARE C [id number] S [id number] A EXCELLUS BCBS B [id number] S [id number] BC/BS Of [place] Medigap Part B [id number] Self Medicare - NGS Medicare Primary [id number] Self [place] 306/806 [id number] [id number] [place] 306/806 [id number] WI2 [id number] [place] 306/806 [id number] SP [id number] EXCELLUS BCBS B [id number] S VYY [id number] MEDICARE C [id number] S [id number] BLUE CROSS BLUE SHIELD [id number] MEDICARE PART A [facility] [id number] 18 [id number] BCBS of [facility] Other 0 [id number] Self [address] [facility] Other 0 [id number] Self 0 Problems, Conditions, and Diagnoses No Information Surgeries/Procedures Procedure Description Date Indications Data Source(s) CLTX METACARPAL FX W/O MANIPULATION EACH BONE 09/29/19 21 12:00:00 AM ÁNGEL MENENDEZ ([facility], ) OFFICE OUTPATIENT NEW 30 MINUTES 09/28/2020 12:00:00 A M EDT [facility] ([facility]) OFFICE OUTPATIENT NEW 45 MINUTES 09/28/2020 12:00:00 A M EDT [facility] ([facility]) Results ID Date Data Source [id number] 01/06/2021 11:00:00 AM EDT [facility] Name Value Range Interpretation Code Description Data Ana rce(s) Supporting Document(s) SARS coronavirus 2 RNA [Presence] in Res piratory specimen by CARISSA with probe detection POSITIVE [facility] This lab was ordered by [facility] a nd reported by [facility]. ID Date Data Source [id number] 01/03/2021 11:00:00 AM EDT [facility] Name Value Range Interpretation Code Description Data Ana rce(s) Supporting Document(s) SARS coronavirus 2 RNA [Presence] in Res piratory specimen by CARISSA with probe detection NEGATIVE [facility] This lab was ordered by [facility] a nd reported by [facility]. ID Date Data Source [id number] 12/30/2020 08:17:00 AM EDT [facility] Name Value Range Interpretation Code Description Data Ana rce(s) Supporting Document(s) SARS coronavirus 2 RNA [Presence] in Res piratory specimen by CARISSA with probe detection NEGATIVE [facility] This lab was ordered by [facility] a nd reported by [facility]. ID Date Data Source [id number] 07/26/2020 12:00:00 AM EDT [facility] Name Value Range Interpretation Code Description Data Ana rce(s) Supporting Document(s) SARS coronavirus 2 Ag NEGATIVE [facility] This lab was ordered by [facility] and reported by [facility]. ID Date Data Source [id number] 07/19/2020 12:00:00 AM EDT [facility] Name Value Range Interpretation Code Description Data Ana rce(s) Supporting Document(s) SARS coronavirus 2 Ag NEGATIVE [facility] This lab was ordered by [facility] and reported by [facility]. ID Date Data Source [id number] 07/06/2020 12:00:00 AM EDT [facility] Name Value Range Interpretation Code Description Data Ana rce(s) Supporting Document(s) SARS coronavirus 2 Ag NEGATIVE [facility] This lab was ordered by [facility] and reported by [facility]. ID Date Data Source [id number] 06/11/2020 08:21:00 AM EDT [facility] Name Value Range Interpretation Code Description Data Ana rce(s) Supporting Document(s) SARS coronavirus 2 RNA Not Detected [facility] [place] This lab was ordered by [facility] and reported by [facility]. ID Date Data Source [id number] 05/26/2020 10:30:00 AM EDT [facility] Name Value Range Interpretation Code Description Data Ana rce(s) Supporting Document(s) SARS coronavirus 2 RNA Not Detected [facility] [place] This lab was ordered by [facility] and reported by [facility]. ID Date Data Source [id number] 05/19/2020 07:00:00 AM EST [facility] Name Value Range Interpretation Code Description Data Ana rce(s) Supporting Document(s) SARS coronavirus 2 RNA Not Detected [facility] [place] This lab was ordered by [facility] and reported by [facility]. ID Date Data Source [id number] 05/05/2020 09:44:00 AM EST [facility] Name Value Range Interpretation Code Description Data Ana rce(s) Supporting Document(s) SARS coronavirus 2 RNA Not Detected [facility] [place] This lab was ordered by [facility] and reported by [facility]. ID Date Data Source [id number] 04/28/2020 10:00:00 AM EST [facility] Name Value Range Interpretation Code Description Data Ana rce(s) Supporting Document(s) SARS coronavirus 2 RNA Not Detected [facility] [place] This lab was ordered by [facility] and reported by [facility]. ID Date Data Source [id number] 04/21/2020 09:00:00 AM EST [facility] Name Value Range Interpretation Code Description Data Ana rce(s) Supporting Document(s) SARS coronavirus 2 RNA Not Detected [facility] [place] This lab was ordered by [facility] and reported by [facility]. ID Date Data Source [id number] 04/14/2020 09:01:00 AM EST [facility] Name Value Range Interpretation Code Description Data Ana rce(s) Supporting Document(s) SARS coronavirus 2 RNA Not Detected [facility] [place] This lab was ordered by [facility] and reported by [facility]. ID Date Data Source [id number] 04/07/2020 10:30:00 AM EST [facility] Name Value Range Interpretation Code Description Data Ana rce(s) Supporting Document(s) SARS coronavirus 2 RNA Not Detected [facility] [place] This lab was ordered by [facility] and reported by [facility]. ID Date Data Source [id number] 03/31/2020 07:00:00 AM EST [facility] Name Value Range Interpretation Code Description Data Ana rce(s) Supporting Document(s) SARS coronavirus 2 RNA Not Detected [facility] [place] This lab was ordered by [facility] and reported by [facility]. ID Date Data Source [id number] 03/24/2020 11:00:00 AM EST [facility] Name Value Range Interpretation Code Description Data Ana rce(s) Supporting Document(s) SARS coronavirus 2 RNA Not Detected [facility] [place] This lab was ordered by [facility] and reported by [facility]. ID Date Data Source [id number] 03/17/2020 11:00:00 AM EST [facility] Name Value Range Interpretation Code Description Data Ana rce(s) Supporting Document(s) SARS coronavirus 2 RNA Not Detected [facility] [place] This lab was ordered by [facility] and reported by [facility]. ID Date Data Source [id number] 03/10/2020 09:00:00 AM EST [facility] Name Value Range Interpretation Code Description Data Ana rce(s) Supporting Document(s) SARS coronavirus 2 RNA [facility] This lab was ordered by [facility] and reported by [facility]. ID Date Data Source [id number] 03/03/2020 11:00:00 AM EST [facility] Name Value Range Interpretation Code Description Data Ana rce(s) Supporting Document(s) SARS coronavirus 2 RNA [facility] This lab was ordered by [facility] and reported by [facility]. ID Date Data Source [id number] 02/25/2020 10:06:00 AM EST [facility] Name Value Range Interpretation Code Description Data Ana rce(s) Supporting Document(s) SARS coronavirus 2 RNA [facility] This lab was ordered by [facility] and reported by [facility]. ID Date Data Source [id number] 02/18/2020 10:30:00 AM EST [facility] Name Value Range Interpretation Code Description Data Ana rce(s) Supporting Document(s) SARS coronavirus 2 RNA [facility] This lab was ordered by [facility] and reported by [facility]. ID Date Data Source [id number] 02/11/2020 02:00:00 PM EST [facility] Name Value Range Interpretation Code Description Data Ana rce(s) Supporting Document(s) SARS coronavirus 2 RNA [facility] This lab was ordered by [facility] and reported by [facility]. ID Date Data Source [id number] 02/04/2020 06:00:00 AM EST [facility] Name Value Range Interpretation Code Description Data Ana rce(s) Supporting Document(s) SARS coronavirus 2 RNA [facility] This lab was ordered by [facility] and reported by [facility]. ID Date Data Source [id number] 01/28/2020 10:25:00 AM EST [facility] Name Value Range Interpretation Code Description Data Ana rce(s) Supporting Document(s) SARS coronavirus 2 RNA [facility] This lab was ordered by [facility] and reported by [facility]. ID Date Data Source [id number] 01/22/2020 01:36:00 PM EST [facility] Name Value Range Interpretation Code Description Data Ana rce(s) Supporting Document(s) SARS coronavirus 2 RNA [facility] This lab was ordered by [facility] and reported by [facility]. Procedure Social History No Information Vital Signs ID Date Data Source UNK Name Value Range Interpretation Code Description Data Source(s) Body temperature 97.5 [degF] 97.5 [degF] [facility] ([facility], )
[2021-01-24] MEDS ORDERED: BISACODYL 10 MG SUPP PR PRN (00:45)
[2021-01-24] MEDS ORDERED: MOM 30ML SUSPENSION UDC PO PRN (00:45)
[2021-01-24] MEDS ORDERED: ALBUTEROL 90 MCG/ACT 8GM HFA INHALER INH PRN (00:45)
[2021-01-24] MEDS ORDERED: VANCOMYCIN HCL 1,000 MG, VIAL MATE ADAPTER 1 EACH in NS 250 ML IV SCH ×2 (00:55→18:00)
[2021-01-24] MEDS ORDERED: VANCOMYCIN HCL 750 MG, VIAL MATE ADAPTER 1 EACH in NS 250 ML IV ONE ×2 (01:00→02:00)
[2021-01-24 01:32] LABS: BASO # 0.1 10^3/uL (0.0-0.2); BASO % 0.3 % (0.0-1.0); EOS % 0.1 % (0.0-3.0); HEMATOCRIT 32.6 % (42.0-52.0); HEMOGLOBIN 10.9 g/dl (13.5-17.5); LYMPH # 1.6 10^3/uL (1.5-5.0); LYMPH % 10.7 % (24.0-44.0); MEAN CORPUSCULAR HEMOGLOBIN 29.2 pg (27.0-33.0); MEAN CORPUSCULAR HGB CONC 33.4 g/dl (32.0-36.5); MEAN CORPUSCULAR VOLUME 87.4 fl (80.0-96.0); MONO # 1.2 10^3/uL (0.0-0.8); NEUTROPHILS # 11.8 10^3/uL (1.5-8.5); NEUTROPHILS % 80.4 % (36.0-66.0); PLATELET COUNT, AUTOMATED 278 10^3/uL (150-450); RED BLOOD COUNT 3.73 10^6/uL (4.30-6.10); WHITE BLOOD COUNT 14.7 10^3/uL (4.0-10.0)
[2021-01-24 01:50] LABS: ALBUMIN 2.2 GM/DL (3.2-5.2); ALT/SGPT 33 U/L (12-78); BILIRUBIN,TOTAL 0.6 MG/DL (0.2-1.0); BLOOD UREA NITROGEN 33 MG/DL (7-18); CALCIUM LEVEL 8.3 MG/DL (8.8-10.2); CARBON DIOXIDE LEVEL 21 MEQ/L (21-32); CHLORIDE LEVEL 107 MEQ/L (98-107); CREATININE FOR GFR 0.95 MG/DL (0.70-1.30); GLOMERULAR FILTRATION RATE > 60.0 (>35); GLUCOSE, FASTING 126 MG/DL (70-100); MAGNESIUM LEVEL 2.2 MG/DL (1.8-2.4); SODIUM LEVEL 139 MEQ/L (136-145)
[2021-01-24] MEDS ORDERED: NS 500 ML IV ONE (02:45)
[2021-01-24 03:25] VITALS: BP 127/73
[2021-01-24] MEDS ORDERED: NS 1,000 ML IV SCH (03:25)
[2021-01-24] MEDS: traZODone 50 MG TAB PO SCH ×2 (03:38→20:00)
[2021-01-24] MEDS: ATORVASTATIN 20 MG TAB PO SCH ×2 (03:39→20:00)
[2021-01-24 04:24] LABS: NT-PRO BNP 15250 PG/ML (<450)
[2021-01-24 05:13] LABS: BASO % 0.3 % (0.0-1.0); EOS % 0.2 % (0.0-3.0); HEMATOCRIT 32.3 % (42.0-52.0); HEMOGLOBIN 10.8 g/dl (13.5-17.5); LYMPH # 1.2 10^3/uL (1.5-5.0); LYMPH % 10.5 % (24.0-44.0); MEAN CORPUSCULAR HEMOGLOBIN 29.3 pg (27.0-33.0); MEAN CORPUSCULAR HGB CONC 33.4 g/dl (32.0-36.5); MEAN CORPUSCULAR VOLUME 87.8 fl (80.0-96.0); MONO # 0.8 10^3/uL (0.0-0.8); MONO % 6.9 % (2.0-8.0); NEUTROPHILS # 9.6 10^3/uL (1.5-8.5); NEUTROPHILS % 81.5 % (36.0-66.0); PLATELET COUNT, AUTOMATED 280 10^3/uL (150-450); RED BLOOD COUNT 3.68 10^6/uL (4.30-6.10); WHITE BLOOD COUNT 11.7 10^3/uL (4.0-10.0)
[2021-01-24 05:30] LABS: ALT/SGPT 33 U/L (12-78); BILIRUBIN,TOTAL 0.7 MG/DL (0.2-1.0); BLOOD UREA NITROGEN 33 MG/DL (7-18); CALCIUM LEVEL 8.3 MG/DL (8.8-10.2); CARBON DIOXIDE LEVEL 22 MEQ/L (21-32); CHLORIDE LEVEL 105 MEQ/L (98-107); CREATININE FOR GFR 0.98 MG/DL (0.70-1.30); GLOMERULAR FILTRATION RATE > 60.0 (>35); GLUCOSE, FASTING 182 MG/DL (70-100); MAGNESIUM LEVEL 2.4 MG/DL (1.8-2.4); POTASSIUM SERUM 3.7 MEQ/L (3.5-5.1); SODIUM LEVEL 137 MEQ/L (136-145); TOTAL PROTEIN 6.3 GM/DL (6.4-8.2)
[2021-01-24] MEDS: LEVOTHYROXINE 75MCG TABLET (0.075MG) PO SCH (05:34)
[2021-01-24 05:38] LABS: ERYTHROCYTE SEDIMENTATION RATE 56 mm/hr (0-20)
[2021-01-24 08:00] VITALS: BP 111/51
[2021-01-24] MEDS: CEFEPIME HCL 2 GM in D5W MINI-BAG PLUS 50 ML IV SCH ×2 (08:44→20:48)
[2021-01-24] MEDS: ASPIRIN 81 MG CHEW TABLET PO SCH (08:48)
[2021-01-24] MEDS: SENOKOT S TAB PO SCH ×2 (08:52→20:00)
--- NOTE | 2021-01-24 09:26 | IPNPDOC ---
Subjective Date Seen The patient was seen on 01/24/21. Subjective Chief Complaint/HPI No issues overnight. No fever. Vitals stable. Patient is nonverbal at baseline. He withdraws to any stimuli and tries to push away. Objective Physical Examination General Exam: Positive: No Acute Distress, Other (Does not open his eyes withdraws to any stimuli) ENT Exam: Positive: Atraumatic, Mucous membr. moist/pink, Pharynx Normal Neck Exam: Positive: Supple; Negative: JVD, thyromegaly Chest Exam: Positive: Other (Crackles at the right base and middle); Negative: Rales, Rhonchi, Wheezing Heart Exam: Positive: Bradycardic, Irregular Rhythm, Normal S1, Normal S2, Murmurs; Negative: Rubs Telemetry: Positive: Atrial fibrillation Abdomen Exam: Positive: Normal bowel sounds, Soft; Negative: Tenderness Extremity Exam: Negative: Clubbing, Cyanosis, Edema Psych Exam: Positive: Other (Dementia) Assessment /Plan Assessment 85 yo M from [facility] with a PMHx of atrial fibrillation with slow rate not a candidate for pacemaker is evaluated by Dr. Byers as an outpatient, CAD s/p CABG 2012 and cardiac stent 2001, COPD, advanced dementia, DM with neuropathy, COPD, history of hyperlipidemia, history of DEVAN, hypothyroid, abnormal EKG with the right bundle branch block, left hemiblock and first-degree AV block with A. fib, he developed fever, and cough, and was found to have elevated WBC, as well as consolidation in the R middle lung lobe. He was sent to [facility] ER for treatment of his pneumonia. In the ED he was also noted to have redness and swelling of his right foot. The patient has advanced dementia and is non verbal at baseline. He has atrial fibrillation with slow ventricular response, previously noted on EKG in 03/2019. He is currently at a rate of ~35-42 BPM. Patient was admitted for hospital-acquired pneumonia with sepsis and possibly cellulitis. Sepsis 2/2 Hospital acquired pna (resident at [facility]) as well as possibly cellulitis Continue cefepime and vancomycin Maintenance IV fluid has poor oral and Cultures in progress Cellulitis Cefepime and vancomycin Vascular ultrasound ordered Atrial fibrillation with slow ventricular rate Heart rate in 30s. patient's daughter, Mary Ellington (tel [phone]) reported that per Dr. Byers, not a candidate for pacemaker she does not wish for pacing or pressors in the event of hemodynamic instability Dementia, advanced patient is non verbal at baseline requires 02/10 care Seroquel held due to prolonged QTC hypothyroidism c/w levothyroxine Diastolic congestive heart failure Appears to be euvolemic at this time We will continue with maintenance IV fluid Hx of CAD c/w ASA and statin DEVAN Does not use CPAP as an outpatient Hx of COPD saturating well on RA Plan/VTE VTE Prophylaxis Ordered?: Yes VS, I&O, 24H, Fishbone Vital Signs/I&O Vital Signs Date Time Temp Pulse Resp B/P (MAP) Pulse Ox O2 Delivery O2 Flow Rate FiO2 01/24/21 08:00 96.8 36 17 111/51 (71) 98 Room Air I&O- Last 24 Hours up to 6 AM 01/24/21 06:00 Intake Total 1825 ml Balance 1825 ml Laboratory Data 24H LABS Laboratory Tests 2 01/23/21 19:44: Blood Gas Bicarbonate Standard 21.3, Venous Blood pH 7.430, Venous Blood Partial Pressure CO2 30.1L, Venous Blood Partial Pressure O2 61.2H, Venous Blood Total Carbon Dioxide 20.5L, Venous Blood HCO3 19.5L, Venous Blood Oxygen Saturation 90.5H, Venous Blood Base Excess -3.7L, Lactic Acid Level 2.9*H 01/24/21 00:49: Lactic Acid Level 2.1*H 01/24/21 01:08: Immature Granulocyte % (Auto) 0.5, Neutrophils (%) (Auto) 80.4H, Lymphocytes (%) (Auto) 10.7L, Monocytes (%) (Auto) 8.0, Eosinophils (%) (Auto) 0.1, Basophils (%) (Auto) 0.3, Neutrophils # (Auto) 11.8H, Lymphocytes # (Auto) 1.6, Monocytes # (Auto) 1.2H, Eosinophils # (Auto) 0.0, Basophils # (Auto) 0.1, Nucleated Red Blood Cells % (auto) 0.0, Anion Gap 11, Glomerular Filtration Rate > 60.0, Calcium Level 8.3L, Magnesium Level 2.2, Total Bilirubin 0.6, Aspartate Amino Transf (AST/SGOT) 50H, Alanine Aminotransferase (ALT/SGPT) 33, Alkaline Phosphatase 110, Troponin I 0.08, UG-Pih-C-Type Natriuretic Peptide 97845O, Total Protein 6.0L, Albumin 2.2L, Albumin/Globulin Ratio 0.6 01/24/21 04:36: Troponin I 0.08 01/24/21 04:39: Immature Granulocyte % (Auto) 0.6, Neutrophils (%) (Auto) 81.5H, Lymphocytes (%) (Auto) 10.5L, Monocytes (%) (Auto) 6.9, Eosinophils (%) (Auto) 0.2, Basophils (%) (Auto) 0.3, Neutrophils # (Auto) 9.6H, Lymphocytes # (Auto) 1.2L, Monocytes # (Auto) 0.8, Eosinophils # (Auto) 0.0, Basophils # (Auto) 0.0, Nucleated Red B lood Cells % (auto) 0.0, Erythrocyte Sedimentation Rate 56H, Anion Gap 10, Glomerular Filtration Rate > 60.0, Calcium Level 8.3L, Magnesium Level 2.4, Total Bilirubin 0.7, Aspartate Amino Transf (AST/SGOT) 53H, Alanine Aminotransferase (ALT/SGPT) 33, Alkaline Phosphatase 106, C-Reactive Protein, Quantitative 15.10H, Total Protein 6.3L, Albumin 2.0L, Albumin/Globulin Ratio 0.5 01/24/21 05:55: Lactic Acid Followup at 4 Hours 2.4*H CBC/BMP Laboratory Tests 01/24/21 01:08 01/24/21 04:39 Microbiology Microbiology 01/24/21 Blood Culture, Received Pending 01/24/21 Blood Culture, Received Pending 01/23/21 Respiratory Virus Panel (PCR) ([facility]) - Final, Complete Jory Archer MD Jan 24, 2021 09:26
[2021-01-24 09:31] LABS: FREE T4 1.59 NG/DL (0.76-1.46)
--- NOTE | 2021-01-24 09:58 | REP ---
INDICATION: r/o DVT COMPARISON: None. TECHNIQUE: Bashir scale and color Doppler evaluation using linear high frequency transducer. FINDINGS: Ultrasound examination of the right and left lower extremity deep venous structures from the common femoral vein through the calf/ankle to include the peroneal, and tibial veins demonstrates normal compressibility flow and wave patterns in response to respiration and augmentation. There is no evidence for deep venous thrombosis. Of note, examination is somewhat limited due to patient's level of cooperation and mobility. IMPRESSION: No evidence for deep venous thrombosis. <Electronically signed by Everett Lawrence > 01/24/21 0975
[2021-01-24] MEDS: D5W/0.9% SODIUM CHLORIDE 1,000 ML IV SCH (10:02)
[2021-01-24 11:35] VITALS: BP 120/48
[2021-01-24 14:00] VITALS: BP 117/43
[2021-01-24 22:00] VITALS: BP 118/48
[2021-01-25 02:27] VITALS: O2SAT 95
[2021-01-25] MEDS: D5W/0.9% SODIUM CHLORIDE 1,000 ML IV SCH ×2 (03:57→15:38)
[2021-01-25] MEDS: LEVOTHYROXINE 75MCG TABLET (0.075MG) PO SCH (05:09)
[2021-01-25 06:00] VITALS: BP_SYST 124; BP_SYST 125; BP_DIAS 67; BP_DIAS 68
[2021-01-25] MEDS: CEFEPIME HCL 2 GM in D5W MINI-BAG PLUS 50 ML IV SCH ×2 (09:19→20:34)
[2021-01-25] MEDS: ASPIRIN 81 MG CHEW TABLET PO SCH (09:19)
[2021-01-25] MEDS: SENOKOT S TAB PO SCH ×2 (09:20→20:35)
[2021-01-25 11:50] LABS: BASO # 0.1 10^3/uL (0.0-0.2); BASO % 0.5 % (0.0-1.0); EOS # 0.1 10^3/uL (0.0-0.5); HEMATOCRIT 35.5 % (42.0-52.0); HEMOGLOBIN 11.7 g/dl (13.5-17.5); LYMPH # 1.4 10^3/uL (1.5-5.0); LYMPH % 13.2 % (24.0-44.0); MEAN CORPUSCULAR HEMOGLOBIN 29.4 pg (27.0-33.0); MEAN CORPUSCULAR VOLUME 89.2 fl (80.0-96.0); MONO # 0.7 10^3/uL (0.0-0.8); MONO % 6.9 % (2.0-8.0); NEUTROPHILS # 8.4 10^3/uL (1.5-8.5); NEUTROPHILS % 78.1 % (36.0-66.0); PLATELET COUNT, AUTOMATED 268 10^3/uL (150-450); RED BLOOD COUNT 3.98 10^6/uL (4.30-6.10); WHITE BLOOD COUNT 10.7 10^3/uL (4.0-10.0)
[2021-01-25 12:13] LABS: BLOOD UREA NITROGEN 29 MG/DL (7-18); CALCIUM LEVEL 8.3 MG/DL (8.8-10.2); CARBON DIOXIDE LEVEL 21 MEQ/L (21-32); CHLORIDE LEVEL 112 MEQ/L (98-107); CREATININE FOR GFR 0.81 MG/DL (0.70-1.30); GLOMERULAR FILTRATION RATE > 60.0 (>35); GLUCOSE, FASTING 133 MG/DL (70-100); POTASSIUM SERUM 3.9 MEQ/L (3.5-5.1); SODIUM LEVEL 141 MEQ/L (136-145)
[2021-01-25 14:00] VITALS: BP 100/64
--- NOTE | 2021-01-25 14:11 | IPNPDOC ---
Subjective Date Seen The patient was seen on 01/25/21. Subjective Chief Complaint/HPI Patient more awake today. Following people around the room. Smiling. Saying mumbling words able to squeeze hands. Objective Physical Examination General Exam: Positive: No Acute Distress, Other (Does not open his eyes withdraws to any stimuli) ENT Exam: Positive: Atraumatic, Mucous membr. moist/pink, Pharynx Normal Neck Exam: Positive: Supple; Negative: JVD, thyromegaly Chest Exam: Positive: Other (Crackles at the right base and middle); Negative: Rales, Rhonchi, Wheezing Heart Exam: Positive: Bradycardic, Irregular Rhythm, Normal S1, Normal S2, Murmurs; Negative: Rubs Telemetry: Positive: Atrial fibrillation Abdomen Exam: Positive: Normal bowel sounds, Soft; Negative: Tenderness Extremity Exam: Negative: Clubbing, Cyanosis, Edema Psych Exam: Positive: Other (Dementia) Assessment /Plan Assessment 85 yo M from [facility] with a PMHx of atrial fibrillation with slow rate not a candidate for pacemaker is evaluated by Dr. Byers as an outpatient, CAD s/p CABG 2012 and cardiac stent 2001, COPD, advanced dementia, DM with neuropathy, COPD, history of hyperlipidemia, history of DEVAN, hypothyroid, abnormal EKG with the right bundle branch block, left hemiblock and first-degree AV block with A. fib, he developed fever, and cough, and was found to have elevated WBC, as well as consolidation in the R middle lung lobe. He was sent to [facility] ER for treatment of his pneumonia. In the ED he was also noted to have redness and swelling of his right foot. The patient has advanced dementia and is non verbal at baseline. He has atrial fibrillation with slow ventricular response, previously noted on EKG in 03/2019. He is currently at a rate of ~35-42 BPM. Patient was admitted for hospital-acquired pneumonia with sepsis and possibly cellulitis. Sepsis 2/2 Hospital acquired pna (resident at [facility]) as well as possibly cellulitis Continued cefepime only as MRSA PCR is negative Cultures in progress Cellulitis Continue cefepime Vascular ultrasound did not show any DVT Atrial fibrillation with slow ventricular rate Heart rate in 30s. patient's daughter, Mary Ellington (tel [phone]) reported that per Dr. Byers, not a candidate for pacemaker she does not wish for pacing or pressors in the event of hemodynamic instability Dementia, advanced patient is non verbal at baseline requires 02/10 care Seroquel held due to prolonged QTC hypothyroidism c/w levothyroxine Diastolic congestive heart failure Appears to be euvolemic at this time We will continue with maintenance IV fluid Hx of CAD c/w ASA and statin DEVAN Does not use CPAP as an outpatient Hx of COPD saturating well on RA Plan/VTE VTE Prophylaxis Ordered?: Yes VS, I&O, 24H, Fishbone Vital Signs/I&O Vital Signs Date Time Temp Pulse Resp B/P (MAP) Pulse Ox O2 Delivery O2 Flow Rate FiO2 01/25/21 06:00 97.9 56 18 124/68 (86) 96 Room Air I&O- Last 24 Hours up to 6 AM 01/25/21 06:00 Intake Total 1165 ml Balance 1165 ml Laboratory Data 24H LABS Laboratory Tests 2 01/25/21 10:45: Immature Granulocyte % (Auto) 0.3, Neutrophils (%) (Auto) 78.1H, Lymphocytes (%) (Auto) 13.2L, Monocytes (%) (Auto) 6.9, Eosinophils (%) (Auto) 1.0, Basophils (%) (Auto) 0.5, Neutrophils # (Auto) 8.4, Lymphocytes # (Auto) 1.4L, Monocytes # (Auto) 0.7, Eosinophils # (Auto) 0.1, Basophils # (Auto) 0.1, Nucleated Red Blood Cells % (auto) 0.0, Anion Gap 8, Glomerular Filtration Rate > 60.0, Calcium Level 8.3L CBC/BMP Laboratory Tests 01/25/21 10:45 Microbiology Microbiology 01/24/21 Blood Culture - Preliminary, Resulted No growth after 24 hours . All specim... 01/24/21 Blood Culture - Preliminary, Resulted No growth after 24 hours . All specim... 01/23/21 Respiratory Virus Panel (PCR) ([facility]) - Final, Complete Jory Archer MD Jan 25, 2021 14:11
[2021-01-25] MEDS: ATORVASTATIN 20 MG TAB PO SCH (20:34)
[2021-01-25] MEDS: traZODone 50 MG TAB PO SCH (20:35)
[2021-01-26] MEDS: LEVOTHYROXINE 75MCG TABLET (0.075MG) PO SCH (05:40)
[2021-01-26 05:43] VITALS: O2SAT 93
[2021-01-26] MEDS: CEFEPIME HCL 2 GM in D5W MINI-BAG PLUS 50 ML IV SCH ×2 (08:34→21:00)
[2021-01-26] MEDS: D5W/0.9% SODIUM CHLORIDE 1,000 ML IV SCH (08:35)
[2021-01-26 09:00] VITALS: BP 118/68; O2SAT 93
[2021-01-26] MEDS: SENOKOT S TAB PO SCH ×2 (10:15→21:00)
[2021-01-26] MEDS: ASPIRIN 81 MG CHEW TABLET PO SCH (10:16)
[2021-01-26 11:07] LABS: BASO # 0.1 10^3/uL (0.0-0.2); BASO % 0.8 % (0.0-1.0); EOS # 0.2 10^3/uL (0.0-0.5); EOS % 1.5 % (0.0-3.0); HEMATOCRIT 35.3 % (42.0-52.0); HEMOGLOBIN 11.6 g/dl (13.5-17.5); LYMPH # 1.2 10^3/uL (1.5-5.0); LYMPH % 12.3 % (24.0-44.0); MEAN CORPUSCULAR HEMOGLOBIN 29.7 pg (27.0-33.0); MEAN CORPUSCULAR HGB CONC 32.9 g/dl (32.0-36.5); MEAN CORPUSCULAR VOLUME 90.3 fl (80.0-96.0); MONO # 0.7 10^3/uL (0.0-0.8); MONO % 6.8 % (2.0-8.0); NEUTROPHILS # 7.9 10^3/uL (1.5-8.5); NEUTROPHILS % 78.2 % (36.0-66.0); PLATELET COUNT, AUTOMATED 246 10^3/uL (150-450); RED BLOOD COUNT 3.91 10^6/uL (4.30-6.10); WHITE BLOOD COUNT 10.1 10^3/uL (4.0-10.0)
[2021-01-26 11:26] LABS: BLOOD UREA NITROGEN 24 MG/DL (7-18); CALCIUM LEVEL 8.4 MG/DL (8.8-10.2); CARBON DIOXIDE LEVEL 22 MEQ/L (21-32); CHLORIDE LEVEL 115 MEQ/L (98-107); CREATININE FOR GFR 0.83 MG/DL (0.70-1.30); GLOMERULAR FILTRATION RATE > 60.0 (>35); GLUCOSE, FASTING 124 MG/DL (70-100); POTASSIUM SERUM 3.8 MEQ/L (3.5-5.1); SODIUM LEVEL 144 MEQ/L (136-145)
--- NOTE | 2021-01-26 12:37 | IPNPDOC ---
Subjective Date Seen The patient was seen on 01/26/21. Subjective Chief Complaint/HPI No overnight events. Patient awake and tracking people in the room and mumbling words. Objective Physical Examination General Exam: Positive: No Acute Distress, Other (Does not open his eyes withdr prince to any stimuli) ENT Exam: Positive: Atraumatic, Mucous membr. moist/pink, Pharynx Normal Neck Exam: Positive: Supple; Negative: JVD, thyromegaly Chest Exam: Positive: Other (Crackles at the right base and middle); Negative: Rales, Rhonchi, Wheezing Heart Exam: Positive: Bradycardic, Irregular Rhythm, Normal S1, Normal S2, Murmurs; Negative: Rubs Telemetry: Positive: Atrial fibrillation Abdomen Exam: Positive: Normal bowel sounds, Soft; Negative: Tenderness Extremity Exam: Negative: Clubbing, Cyanosis, Edema Psych Exam: Positive: Other (Dementia) Assessment /Plan Assessment 85 yo M from [facility] with a PMHx of atrial fibrillation with slow rate not a candidate for pacemaker is evaluated by Dr. Byers as an outpatient, CAD s/p CABG 2012 and cardiac stent 2001, COPD, advanced dementia, DM with neuropathy, COPD, history of hyperlipidemia, history of DEVAN, hypothyroid, abnormal EKG with the right bundle branch block, left hemiblock and first-degree AV block with A. fib, he developed fever, and cough, and was found to have elevated WBC, as well as consolidation in the R middle lung lobe. He was sent to [facility] ER for treatment of his pneumonia. In the ED he was also noted to have redness and swelling of his right foot. The patient has advanced dementia and is non verbal at baseline. He has atrial fibrillation with slow ventricular response, previously noted on EKG in 03/2019. He is currently at a rate of ~35-42 BPM. Patient was admitted for hospital-acquired pneumonia with sepsis and possibly cellulitis. Sepsis 2/2 Hospital acquired pna (resident at [facility]) as well as possibly cellulitis Continued cefepime only as MRSA PCR is negative Cultures in progress Cellulitis Continue cefepime Vascular ultrasound did not show any DVT Atrial fibrillation with slow ventricular rate Heart rate in 30s. patient's daughter, Mary Ellington (tel [phone]) reported that per Dr. Byers, not a candidate for pacemaker she does not wish for pacing or pressors in the event of hemodynamic instability Dementia, advanced patient is non verbal at baseline requires / care Seroquel held due to prolonged QTC hypothyroidism c/w levothyroxine Diastolic congestive heart failure Appears to be euvolemic at this time We will continue with maintenance IV fluid Hx of CAD c/w ASA and statin DEVAN Does not use CPAP as an outpatient Hx of COPD saturating well on RA Plan/VTE VTE Prophylaxis Ordered?: Yes VS, I&O, 24H, Fishbone Vital Signs/I&O Vital Signs Date Time Temp Pulse Resp B/P (MAP) Pulse Ox O2 Delivery O2 Flow Rate FiO2 01/26/21 09:00 98.3 40 18 118/68 (85) 95 Room Air I&O- Last 24 Hours up to 6 AM 01/26/21 06:00 Intake Total 1550 ml Output Total 0 ml Balance 1550 ml Laboratory Data 24H LABS Laboratory Tests 2 01/25/21 17:45: Bedside Glucose (Misc Panel) 119H 01/26/21 10:28: Immature Granulocyte % (Auto) 0.4, Neutrophils (%) (Auto) 78.2H, Lymphocytes (%) (Auto) 12.3L, Monocytes (%) (Auto) 6.8, Eosinophils (%) (Auto) 1.5, Basophils (%) (Auto) 0.8, Neutrophils # (Auto) 7.9, Lymphocytes # (Auto) 1.2L, Monocytes # (Auto) 0.7, Eosinophils # (Auto) 0.2, Basophils # (Auto) 0.1, Nucleated Red Blood Cells % (auto) 0.0, Anion Gap 7L, Glomerular Filtration Rate > 60.0, Calcium Level 8.4L CBC/BMP Laboratory Tests 01/26/21 10:28 Microbiology Microbiology 01/24/21 Blood Culture - Preliminary, Resulted No Growth after 48 hours. All Specime... 01/24/21 Blood Culture - Preliminary, Resulted No Growth after 48 hours. All Specime... 01/23/21 Respiratory Virus Panel (PCR) ([facility]) - Final, Complete Jory Archer MD Jan 26, 2021 12:37
[2021-01-26 14:00] VITALS: BP 111/62
[2021-01-26] MEDS: ATORVASTATIN 20 MG TAB PO SCH (21:00)
[2021-01-26] MEDS: traZODone 50 MG TAB PO SCH (21:00)
[2021-01-26 22:00] VITALS: BP 105/65
[2021-01-27] MEDS: D5W/0.9% SODIUM CHLORIDE 1,000 ML IV SCH (02:15)
[2021-01-27 06:00] VITALS: BP 131/83
[2021-01-27] MEDS: LEVOTHYROXINE 75MCG TABLET (0.075MG) PO SCH (06:00)
[2021-01-27 07:47] LABS: BASO # 0.1 10^3/uL (0.0-0.2); BASO % 0.8 % (0.0-1.0); EOS # 0.2 10^3/uL (0.0-0.5); EOS % 1.7 % (0.0-3.0); HEMATOCRIT 36.4 % (42.0-52.0); HEMOGLOBIN 11.6 g/dl (13.5-17.5); LYMPH # 1.3 10^3/uL (1.5-5.0); LYMPH % 12.1 % (24.0-44.0); MEAN CORPUSCULAR HEMOGLOBIN 29.4 pg (27.0-33.0); MEAN CORPUSCULAR HGB CONC 31.9 g/dl (32.0-36.5); MEAN CORPUSCULAR VOLUME 92.2 fl (80.0-96.0); MONO # 1.1 10^3/uL (0.0-0.8); NEUTROPHILS # 8.2 10^3/uL (1.5-8.5); PLATELET COUNT, AUTOMATED 262 10^3/uL (150-450); RED BLOOD COUNT 3.95 10^6/uL (4.30-6.10); WHITE BLOOD COUNT 10.9 10^3/uL (4.0-10.0)
[2021-01-27 08:04] LABS: BLOOD UREA NITROGEN 21 MG/DL (7-18); CALCIUM LEVEL 8.4 MG/DL (8.8-10.2); CARBON DIOXIDE LEVEL 21 MEQ/L (21-32); CHLORIDE LEVEL 118 MEQ/L (98-107); CREATININE FOR GFR 0.84 MG/DL (0.70-1.30); GLOMERULAR FILTRATION RATE > 60.0 (>35); GLUCOSE, FASTING 136 MG/DL (70-100); POTASSIUM SERUM 4.2 MEQ/L (3.5-5.1); SODIUM LEVEL 147 MEQ/L (136-145)
[2021-01-27] MEDS: CEFEPIME HCL 2 GM in D5W MINI-BAG PLUS 50 ML IV SCH ×2 (08:08→21:29)
[2021-01-27 09:00] VITALS: BP 128/76
--- NOTE | 2021-01-27 09:55 | IPNPDOC ---
Subjective Date Seen The patient was seen on 01/27/21. Subjective Chief Complaint/HPI No acute overnight events. Refuses to open eyes this morning. Resisting while nurses are trying to take blood pressure. Wants to pull blankets over his head. Objective Physical Examination General Exam: Positive: No Acute Distress, Other (Does not open his eyes withdraws to any stimuli) ENT Exam: Positive: Atraumatic, Mucous membr. moist/pink, Pharynx Normal Neck Exam: Positive: Supple; Negative: JVD, thyromegaly Chest Exam: Positive: Other (Crackles at the right base and middle); Negative: Rales, Rhonchi, Wheezing Heart Exam: Positive: Bradycardic, Irregular Rhythm, Normal S1, Normal S2, Murmurs (Systolic murmur present); Negative: Rubs Telemetry: Positive: Atrial fibrillation Abdomen Exam: Positive: Normal bowel sounds, Soft; Negative: Tenderness Extremity Exam: Negative: Clubbing, Cyanosis, Edema Psych Exam: Positive: Other (Dementia) Assessment /Plan Assessment 85 yo M from [facility] with a PMHx of atrial fibrillation with slow rate not a candidate for pacemaker is evaluated by Dr. Byers as an outpatient, CAD s/p CABG 2012 and cardiac stent 2001, COPD, advanced dementia, DM with neuropathy, COPD, history of hyperlipidemia, history of DEVAN, hypothyroid, abnormal EKG with the right bundle branch block, left hemiblock and first-degree AV block with A. fib, he developed fever, and cough, and was found to have elevated WBC, as well as consolidation in the R middle lung lobe. He was sent to [facility] ER for treatment of his pneumonia. In the ED he was also noted to have redness and swelling of his right foot. The patient has advanced dementia and is non verbal at baseline. He has atrial fibrillation with slow ventricular response, previously noted on EKG in 03/2019. He is currently at a rate of ~35-42 BPM. Patient was admitted for hospital-acquired pneumonia with sepsis and possibly cellulitis. Sepsis 2/2 Hospital acquired pna (resident at [facility]) as well as possibly cellulitis Continued cefepime only as MRSA PCR is negative Cultures in progress Cellulitis Continue cefepime Vascular ultrasound did not show any DVT Hyper natremia Sodium of 147 Likely due to decreased oral free water intake Atrial fibrillation with slow ventricular rate Heart rate in 30s. patient's daughter, Mary Ellington (tel [phone]) reported that per Dr. Byers, not a candidate for pacemaker she does not wish for pacing or pressors in the event of hemodynamic instability Dementia, advanced patient is non verbal at baseline requires 24/ care Seroquel held due to prolonged QTC hypothyroidism c/w levothyroxine Diastolic congestive heart failure Appears to be euvolemic at this time Hx of CAD c/w ASA and statin DEVAN Does not use CPAP as an outpatient Hx of COPD saturating well on RA Plan/VTE VTE Prophylaxis Ordered?: Yes VS, I&O, 24H, Fishbone Vital Signs/I&O Vital Signs Date Time Temp Pulse Resp B/P (MAP) Pulse Ox O2 Delivery O2 Flow Rate FiO2 01/27/21 09:00 99.0 34 24 128/76 (93) 92 Room Air 01/26/21 14:12 2.0 I&O- Last 24 Hours up to 6 AM 01/27/21 06:00 Intake Total 1077 ml Output Total 0 ml Balance 1077 ml Laboratory Data 24H LABS Laboratory Tests 2 01/26/21 10:28: Immature Granulocyte % (Auto) 0.4, Neutrophils (%) (Auto) 78.2H, Lymphocytes (%) (Auto) 12.3L, Monocytes (%) (Auto) 6.8, Eosinophils (%) (Auto) 1.5, Basophils (%) (Auto) 0.8, Neutrophils # (Auto) 7.9, Lymphocytes # (Auto) 1.2L, Monocytes # (Auto) 0.7, Eosinophils # (Auto) 0.2, Basophils # (Auto) 0.1, Nucleated Red Blood Cells % (auto) 0.0, Anion Gap 7L, Glomerular Filtration Rate > 60.0, Calcium Level 8.4L 01/26/21 16:36: Bedside Glucose (Misc Panel) 198H 01/27/21 07:28: Immature Granulocyte % (Auto) 0.4, Neutrophils (%) (Auto) 75.0H, Lymphocytes (%) (Auto) 12.1L, Monocytes (%) (Auto) 10.0H, Eosinophils (%) (Auto) 1.7, Basophils (%) (Auto) 0.8, Neutrophils # (Auto) 8.2, Lymphocytes # (Auto) 1.3L, Monocytes # (Auto) 1.1H, Eosinophils # (Auto) 0.2, Basophils # (Auto) 0.1, Nucleated Red Blood Cells % (auto) 0.0, Anion Gap 8, Glomerular Filtration Rate > 60.0, Calcium Level 8.4L CBC/BMP Laboratory Tests 01/26/21 10:28 01/27/21 07:28 Microbiology Microbiology 01/24/21 Blood Culture - Preliminary, Resulted No Growth after 72 hours. All specime... 01/24/21 Blood Culture - Preliminary, Resulted No Growth after 72 hours. All specime... 01/23/21 Respiratory Virus Panel (PCR) ([facility]) - Final, Complete Jory Archer MD Jan 27, 2021 09:55
[2021-01-27] MEDS: ASPIRIN 81 MG CHEW TABLET PO SCH ×2 (10:52→11:01)
[2021-01-27] MEDS: SENOKOT S TAB PO SCH ×2 (10:53→11:00)
[2021-01-27] MEDS ORDERED: D5W/0.45% SODIUM CHLORIDE 1,000 ML IV SCH (18:45)
[2021-01-27 21:00] VITALS: O2SAT 92
[2021-01-27] MEDS: ATORVASTATIN 20 MG TAB PO SCH (21:00)
[2021-01-27] MEDS: traZODone 50 MG TAB PO SCH (21:29)
[2021-01-28 06:00] VITALS: BP 147/88
[2021-01-28] MEDS: LEVOTHYROXINE 75MCG TABLET (0.075MG) PO SCH (06:00)
[2021-01-28 06:13] LABS: BASO # 0.1 10^3/uL (0.0-0.2); BASO % 0.8 % (0.0-1.0); EOS # 0.2 10^3/uL (0.0-0.5); EOS % 1.8 % (0.0-3.0); HEMATOCRIT 38.8 % (42.0-52.0); HEMOGLOBIN 12.4 g/dl (13.5-17.5); LYMPH # 1.8 10^3/uL (1.5-5.0); LYMPH % 15.1 % (24.0-44.0); MEAN CORPUSCULAR VOLUME 90.9 fl (80.0-96.0); MONO # 1.1 10^3/uL (0.0-0.8); MONO % 9.1 % (2.0-8.0); NEUTROPHILS # 8.8 10^3/uL (1.5-8.5); NEUTROPHILS % 72.9 % (36.0-66.0); PLATELET COUNT, AUTOMATED 268 10^3/uL (150-450); RED BLOOD COUNT 4.27 10^6/uL (4.30-6.10)
[2021-01-28 06:39] LABS: BLOOD UREA NITROGEN 22 MG/DL (7-18); CALCIUM LEVEL 8.7 MG/DL (8.8-10.2); CARBON DIOXIDE LEVEL 21 MEQ/L (21-32); CHLORIDE LEVEL 120 MEQ/L (98-107); CREATININE FOR GFR 0.98 MG/DL (0.70-1.30); GLOMERULAR FILTRATION RATE > 60.0 (>35); GLUCOSE, FASTING 133 MG/DL (70-100); POTASSIUM SERUM 4.2 MEQ/L (3.5-5.1); SODIUM LEVEL 148 MEQ/L (136-145)
[2021-01-28] MEDS ORDERED: D5W 1000ML IV ONE (07:35)
[2021-01-28] MEDS ORDERED: ALBUTEROL SULFATE 2.5 MG/0.5 ML INH NEB SOLN NEB SCH (08:00)
[2021-01-28] MEDS: SENOKOT S TAB PO SCH (08:00)
[2021-01-28] MEDS: ASPIRIN 81 MG CHEW TABLET PO SCH (08:32)
[2021-01-28] MEDS: CEFEPIME HCL 2 GM in D5W MINI-BAG PLUS 50 ML IV SCH (08:32)
[2021-01-28] MEDS ORDERED: CEFD300CAP PO (12:45)
--- NOTE | 2021-01-28 12:46 | DS.PDOC ---
Discharge Summary General Date of Admission Jan 23, 2021 at 21:47 Date of Discharge 01/28/21 Discharge Summary PROCEDURES PERFORMED DURING STAY: [None]. DISCHARGE DIAGNOSES: Healthcare associated pneumonia Cellulitis Sepsis Hypernatremia Atrial fibrillation with slow ventricular rate Advanced dementia Hypothyroid Diastolic CHF CAD DEVAN COPD COMPLICATIONS/CHIEF COMPLAINT: Pnuemonia,Atrial Fibrulation With Slow Ventricular. HOSPITAL COURSE: 85 yo M from [facility] with a PMHx of atrial fibrillation with slow rate not a candidate for pacemaker is evaluated by Dr. Byers as an outpatient, CAD s/p CABG 2012 and cardiac stent 2001, COPD, advanced dementia, DM with neuropathy, COPD, history of hyperlipidemia, history of DEVAN, hypothyroid, abnormal EKG with the right bundle branch block, left hemiblock and first-degree AV block with A. fib, he developed fever, and cough, and was found to have elevated WBC, as well as consolidation in the R middle lung lobe. He was sent to [facility] ER for treatment of his pneumonia. In the ED he was also noted to have redness and swelling of his right foot. The patient has advanced dementia and is non verbal at baseline. He has atrial fibrillation with slow ventricular res ponse, previously noted on EKG in 03/2019. He is currently at a rate of ~35-42 BPM. Patient was admitted for hospital-acquired pneumonia with sepsis and possibly cellulitis. Sepsis 2/2 Hospital acquired pna (resident at [facility]) as well as possibly cellulitis Continued cefepime only as MRSA PCR is negative Cultures no growth till date Finished 5 days of IV antibiotics. Will give another 2 days of cefdinir Cellulitis Finished 5 days of cefepime. Will give another 2 days of oral antibiotics Vascular ultrasound did not show any DVT Hyper natremia Sodium of 148 Likely due to decreased oral free water intake Atrial fibrillation with slow ventricular rate Heart rate in 30s. patient's daughter, Mary Ellington (tel [phone]) reported that per Dr. Byers, not a candidate for pacemaker she does not wish for pacing or pressors in the event of hemodynamic instability Dementia, advanced patient is non verbal at baseline requires 24/7 care Seroquel held due to prolonged QTC hypothyroidism c/w levothyroxine Diastolic congestive heart failure Appears to be euvolemic at this time Hx of CAD c/w ASA and statin DEVAN Does not use CPAP as an outpatient Hx of COPD saturating well on RA DISCHARGE MEDICATIONS: Please see below. ALLERGIES: Please see below. PHYSICAL EXAMINATION ON DISCHARGE: VITAL SIGNS: Please see below. General Exam: Positive: No Acute Distress, Other (Does not open his eyes withdraws to any stimuli) ENT Exam: Positive: Atraumatic, Mucous membr. moist/pink, Pharynx Normal Neck Exam: Positive: Supple; Negative: JVD, thyromegaly Chest Exam: Positive: Other (Crackles at the right base and middle); Negative: Rales, Rhonchi, Wheezing Heart Exam: Positive: Bradycardic, Irregular Rhythm, Normal S1, Normal S2, Murmurs (Systolic murmur present); Negative: Rubs Telemetry: Positive: Atrial fibrillation Abdomen Exam: Positive: Normal bowel sounds, Soft; Negative: Tenderness Extremity Exam: Negative: Clubbing, Cyanosis, Edema Psych Exam: Positive: Other (Dementia) LABORATORY DATA: Please see below. ACTIVITY: [As tolerated]. DIET: As tolerated DISCHARGE PLAN: [facility] DISCHARGE INSTRUCTIONS: Follow-up with the MD at detention DISCHARGE CONDITION: [Stable]. TIME SPENT ON DISCHARGE: 35 minutes. Vital Signs/I&Os Vital Signs Date Time Temp Pulse Resp B/P (MAP) Pulse Ox O2 Delivery O2 Flow Rate FiO2 01/28/21 06:00 97.5 42 19 147/88 (107) 95 Room Air 01/26/21 14:12 2.0 I&O- Last 24 Hours up to 6 AM 01/28/21 06:00 Intake Total 1530 ml Balance 1530 ml Laboratory Data Labs 24H Laboratory Tests 2 01/27/21 16:34: Bedside Glucose (Misc Panel) 101 01/27/21 20:58: Bedside Glucose (Misc Panel) 130H 01/28/21 05:49: Immature Granulocyte % (Auto) 0.3, Neutrophils (%) (Auto) 72.9H, Lymphocytes (%) (Auto) 15.1L, Monocytes (%) (Auto) 9.1H, Eosinophils (%) (Auto) 1.8, Basophils (%) (Auto) 0.8, Neutrophils # (Auto) 8.8H, Lymphocytes # (Auto) 1.8, Monocytes # (Auto) 1.1H, Eosinophils # (Auto) 0.2, Basophils # (Auto) 0.1, Nucleated Red Blood Cells % (auto) 0.0, Anion Gap 7L, Glomerular Filtration Rate > 60.0, Calcium Level 8.7L CBC/BMP Laboratory Tests 01/28/21 05:49 FSBS Laboratory Tests Test 01/27/21 16:34 01/27/21 20:58 Range/Units Bedside Glucose (Misc Panel) 101 130 83-110 MG/DL Microbiology Microbiology 01/24/21 Blood Culture - Preliminary, Resulted No Growth after 72 hours. All specime... 01/24/21 Blood Culture - Preliminary, Resulted No Growth after 72 hours. All specime... 01/23/21 Respiratory Virus Panel (PCR) ([facility]) - Final, Complete Discharge Medications Scheduled Aspirin (Aspirin) 81 Mg Tab.chew, 81 MG PO DAILY, (Reported) Atorvastatin Calcium (Atorvastatin Calcium) 40 Mg Tablet, 40 MG PO QHS, (Reported) Cefdinir (Cefdinir) 300 Mg Capsule, 300 MG PO BID Levothyroxine Sodium (Synthroid) 75 Mcg Tablet, 75 MCG PO DAILY, (Reported) Melatonin (Melatonin) 10 Mg Capsule, 10 MG PO QHS, (Reported) Nut.tx.impaired Digest Fxn (Ensure Clear) 237 Ml Liquid, 237 ML PO TID, (Reported) Quetiapine Fumarate (Quetiapine Fumarate) 25 Mg Tablet, 25 MG PO QHS, (Reported) Sennosides/Docusate Sodium (Senna-S Tablet) 1 Each Tablet, 2 TAB PO BID, (Reported) Sorbitol Solution (Sorbitol 70%) 1 Ml Solution, 15 ML PO Q2D, (Reported) Trazodone HCl (Trazodone HCl) 50 Mg Tablet, 50 MG PO QHS, (Reported) Scheduled PRN Acetaminophen (Tylenol) 325 Mg Tablet, 650 MG PO Q4H PRN for MILD PAIN or TEMP > 100.4, (Reported) Albuterol Sulfate (Proair Hfa) 8.5 Gm Hfa.aer.ad, 2 PUFF INH Q4H PRN for SOB/WHEEZING, (Reported) Bisacodyl (Dulcolax) 10 Mg Supp.rect, 10 MG GA DAILY PRN for CONSTIPATION, (Reported) Magnesium Hydroxide (Milk of Magnesia) 400 Mg/5 Ml Oral.susp, 30 ML PO DAILY PRN for CONSTIPATION, (Reported) Sodium Phosphate,[place]-Dibasic (Fleet Enema) 133 Ml Enema, 1 RAFIA GA DAILY PRN for CONSTIPATION, (Reported) Allergies Coded Allergies: Penicillins (Verified Allergy, Unknown, 06/18/19) latex (Verified Allergy, Unknown, 06/18/19) apple (Unverified Adverse Reaction, Unknown, 06/18/19) lactose (Unverified Adverse Reaction, Unknown, 06/18/19) tomato (Unverified Adverse Reaction, Unknown, HIVES, 06/18/19) Jory Archer MD Jan 28, 2021 07:37
== END 2021-01-28 13:45 | DRG 871 ==
LOC: M ED 19:05 → M ED INP 21:47 → ENRESERV 01-24 00:58 → M PCU 01-24 02:57 → M MS5PR 01-24 11:12
PROVIDERS: ADMIT Family Medicine; ATTEND Internal Medicine Nephrology
DX: A41.9 Sepsis, unspecified organism (principal); J18.9 Pneumonia, unspecified organism; I50.32 Chronic diastolic (congestive) heart failure; E87.0 Hyperosmolality and hypernatremia; L03.115 Cellulitis of right lower limb; Z66 Do not resuscitate; Z95.1 Presence of aortocoronary bypass graft; E03.9 Hypothyroidism, unspecified; G47.33 Obstructive sleep apnea (adult) (pediatric); I25.10 Atherosclerotic heart disease of native coronary artery without angina pectoris; G30.9 Alzheimer's disease, unspecified; I48.91 Unspecified atrial fibrillation; E11.40 Type 2 diabetes mellitus with diabetic neuropathy, unspecified; E78.5 Hyperlipidemia, unspecified; I45.10 Unspecified right bundle-branch block; Z88.0 Allergy status to penicillin; Z91.040 Latex allergy status; Z91.018 Allergy to other foods; Z79.82 Long term (current) use of aspirin; Z79.899 Other long term (current) drug therapy; F02.80 Dementia in other diseases classified elsewhere, unspecified severity, without behavioral disturbance, psychotic disturbance, mood disturbance, and anxiety; Z91.19 Patient's noncompliance with other medical treatment and regimen

== ENCOUNTER → 2021-01-23 | Outpatient (REF) | payer MEDICARE, BC ==
[~2021-01-23] MED LIST changes: -CEFD300CAP PO; -LOSA50TA28 PO; +LOSA50TA88 PO
--- NOTE | 2021-01-23 16:43 | REP ---
INDICATION: ELEVATED TEMP. COMPARISON: Portable chest, 06/18/2019. TECHNIQUE: Upright AP portable chest image was obtained. FINDINGS: There is dense airspace consolidation in the middle lobe the right lung consistent with a lobar pneumonia. There is cardiomegaly without congestive heart failure. There is calcific vascular disease of the thoracic aorta. Status post CABG surgery. Status post median sternotomy. The upper abdominal bowel gas pattern is normal. IMPRESSION: 1. Right middle lobe lobar pneumonia. 2. Cardiomegaly. Status post CABG surgery. <Electronically signed by Jagjit Good > 01/23/21 0214
[2021-01-23 17:03] LABS: APPEARANCE, URINE CLOUDY (CLEAR); BACTERIA, URINE AUTO 1+ (NEGATIVE); BILIRUBIN, URINE AUTO NEGATIVE (NEGATIVE); BLOOD, URINE BLOOD NEGATIVE (NEGATIVE); COLOR, URINE AMBER (YELLOW); GLUCOSE, URINE (UA) AUTO NEGATIVE (NEGATIVE); KETONE, URINE AUTO NEGATIVE (NEGATIVE); LEUKOCYTE ESTERASE, URINE AUTO NEGATIVE (NEGATIVE); MUCUS, URINE SMALL (NEGATIVE); NITRITE, URINE AUTO NEGATIVE (NEGATIVE); PROTEIN, URINE AUTO 1+ mg/dL (NEGATIVE); RBC, URINE AUTO 9 /HPF (0-3); SPECIFIC GRAVITY URINE AUTO 1.021 (1.002-1.035); SQUAMOUS EPITHELIAL CELL UR AU 0 /HPF (0-6); TRANSITIONAL EPITHELIAL AUTO <1 /HPF; WBC, URINE AUTO 8 /HPF (0-3)
[2021-01-23 17:48] LABS: HEMATOCRIT 33.7 % (42.0-52.0); HEMOGLOBIN 11.4 g/dl (13.5-17.5); MEAN CORPUSCULAR HEMOGLOBIN 29.8 pg (27.0-33.0); MEAN CORPUSCULAR HGB CONC 33.8 g/dl (32.0-36.5); PLATELET COUNT, AUTOMATED 324 10^3/uL (150-450); RED BLOOD COUNT 3.83 10^6/uL (4.30-6.10); WHITE BLOOD COUNT 19.7 10^3/uL (4.0-10.0)
[2021-01-23 18:05] LABS: BLOOD UREA NITROGEN 34 MG/DL (7-18); CARBON DIOXIDE LEVEL 22 MEQ/L (21-32); CHLORIDE LEVEL 107 MEQ/L (98-107); CREATININE FOR GFR 1.04 MG/DL (0.70-1.30); GLOMERULAR FILTRATION RATE > 60.0 (>35); GLUCOSE, FASTING 115 MG/DL (70-100); POTASSIUM SERUM 4.2 MEQ/L (3.5-5.1); SODIUM LEVEL 138 MEQ/L (136-145)
== END ==
LOC: SKLAB8 15:53
PROVIDERS: ATTEND Physician Assistant
DX: J18.1 Lobar pneumonia, unspecified organism (principal); I51.7 Cardiomegaly; Z95.1 Presence of aortocoronary bypass graft; R50.9 Fever, unspecified; R53.83 Other fatigue